=== PATIENT | female | born 1995 | race Two or more races ===

== ENCOUNTER 2024-02-04 08:52 | Emergency (ER) | payer SELFPAY ==
[2024-02-04 08:52] VITALS: BP 112/80; PULSE 80; RESP 14; TEMP 36.6; O2SAT 98; BMI 25.5
--- NOTE | 2024-02-04 09:11 | EDS_ITS ---
HPI History of Present Illness Chief Complaint: Back Detail of Chief Complaint: Back pain Informant: patient Narrative Narrative: Patient presents to the emergency department complaint of lower back pain that she has had for 3 days. Patient denies any injury. She is Togolese speaking and using iPad motor vehicle parts interpreter was able to obtain history. 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 She is cu rrently on her menstrual period. She does complain of some dysuria. She has been there for 3 days. She denies fevers. She denies pain radiating down her legs. She denies weakness in the extremities. She has no medical history otherwise. Patient has no primary care physician. She has had no fever or vomiting. She denies abdominal pain. PFSH PFSH Medical History no medical history Home Medications ?Medication ?Instructions ?Recorded ?Last Taken ?Type cyclobenzaprine 10 mg tablet 10 mg PO TID PRN Muscle Spasm #20 02/04/24 Unknown Rx TABLETS naproxen 500 mg tablet 500 mg PO BID #20 tabs 02/04/24 Unknown Rx Allergy/AdvReac Type Severity Reaction Status Date / Time No Known Allergies Allergy Verified 02/04/24 09:07 Surgical History no surgical history Social History Smoking Status: Never smoker ROS ROS ED Review of Systems ROS Unobtainable: other Constitutional Constitutional ED: Reports lethargy; Denies chills, fever(s), sweats or weight loss Eyes Eyes: Denies blurry vision, change in vision or diplopia ENT ENT ED: Denies rhinorrhea or sore throat Cardiovascular Cardiovascular: Denies chest pain, orthopnea or racing heartbeat Respiratory/Chest Respiratory/Chest: Denies cough, dyspnea, dyspnea on exertion, orthopnea or sputum Gastrointestinal Gastrointestinal: Denies abdominal pain, diarrhea, nausea or vomiting Genitourinary Genitourinary ED: Reports dysuria; Denies hematuria or urinary frequency Musculoskeletal Musculoskeletal: Reports back pain; Denies arthralgias, myalgias or neck pain Integumentary Denies abscess, Abrasions or rash Neurologic Neurologic: Denies headache(s) or weakness Psychiatric Psychiatric: Denies anxiety, depression or suicidal thoughts Endocrine Endocrinology: Denies polydipsia, polyphagia or polyuria Hematologic/Lymphatic Hematologic/Lymphatic: Denies easy bleeding, easy bruising or lymphadenopathy Allergic/Immunologic Allergic/Immunologic ED: Denies mouth swelling, tongue swelling or urticaria EXAM Physical Exam Const Vital Signs: 02/04/24 08:52 Temperature 97.9 F Temperature Source Temporal Pulse Rate 80 Respiratory Rate 14 Blood Pressure 112/80 Blood Pressure Mean 90 Pulse Ox 98 Oxygen Delivery Method Room Air Positive well nourished and well developed General Appearance ED: well developed and NAD HEENT Reports TM's clear and moist mucous membranes normocephalic and atraumatic; Negative for trauma or tenderness Tympanic Membrane ED: Yes TM's clear Eyes PERRL and EOMs intact bilaterally General Eye ED: Negative for pale conjunctiva or scleral icterus Neck no lymphadenopathy, supple and no JVD General: Negative for tenderness Chest Wall inspection of chest normal and palpation of chest normal Chest: Negative for tenderness Resp normal respiratory effort and clear to auscultation bilaterally Effort and Inspection: Negative for respiratory distress or pain with movement Auscultation: Negative for rhonchi, wheezes or diminished lung sounds Cardio regular rate, regular rhythm, S1 normal heart sound, S2 normal heart sound and no murmurs Peripheral Pulses: pulses 2+ throughout GI normal to inspection, nondistended, normoactive bowel sounds, soft to palpation, non-tender, non-distended and no masses Back/Spine no CVA tenderness and no thoracic nor lumbar tenderness Back/Spine Narrative: Mild diffuse tenderness palpation over the paraspinal musculature bilaterally in the lumbar region. No bony tenderness on exam. She has negative straight leg raises. Deep tendon reflexes are plus 2 out of 4 bilaterally at the patella and Achilles. She has normal 5 extension. Extremity normal to inspection General Extremety ED: Negative for edema General Extremity: Negative for edema Neuro oriented x3, CN's II-XII intact bilaterally, no sensory deficits noted and gait normal Sensorium / Orientation: awake, alert, oriented to person, oriented to place and oriented to time Motor Exam: strength 5/5 throughout and strength abnormal Psych mental status grossly normal Skin no rashes or lesions noted and no wounds MDM MDM MDM Narrative Medical decision making narrative: Patient with atraumatic back pain. She is currently on her menstrual period. She has had some dysuria. Urinalysis obtained was positive for blood in the urine without signs of infection. hCG was negative. I feel that hematuria is related to patient being on her menstrual period. I do not feel any type of imaging is indicated. Will give work restrictions and will start on Naprosyn and Flexeril. Advised to follow-up with primary care physician on-call for no doc within next 3 to 5 days. No radiculopathic signs or symptoms. No evidence for cauda equina Lab Data Attestation: I reviewed the patient's lab results. Labs: Laboratory Results - last 24 hr 02/04/24 09:20 Urine Color Yellow Urine Clarity Clear Urine pH 6.0 Ur Specific [place] 1.015 Urine Protein 15 H Urine Glucose (UA) Normal Urine Ketones Negative Urine Occult Blood 250 H Urine Nitrite Negative Urine Bilirubin Negative Urine Urobilinogen Normal Ur Leukocyte Esterase Negative Urine RBC 50-100 SEEN Urine WBC 0 SEEN Ur Squamous Epith Cells 0 SEEN Urine Bacteria 0 SEEN Urine Mucus 0 SEEN Urine Test Negative Discharge Plan Triage Chief Complaint: Back ED Provider: Maile Kohli Dx/Rx/DC Orders Clinical Impression: Back pain Instructions: ED Back Pain (Acute or Chronic) Prescriptions: New cyclobenzaprine 10 mg tablet 10 mg PO TID PRN (Reason: Muscle Spasm) Qty: 20 0RF naproxen 500 mg tablet 500 mg PO BID Qty: 20 0RF Referrals: Sergei Villalba MD [Med Staff - Associate Product Manager] - 3-5 Days Print Language: Setswana Disposition Disposition: Home, Self Care
[2024-02-04 09:27] LABS: Bacteria 0 SEEN /hpf (None Seen); Mucous, Urine 0 SEEN /hpf (<or=2+); Squamous Epithelial Cells - UA 0 SEEN /hpf (5-10); White Blood Cells 0 SEEN /hpf (0-5)
[2024-02-04 09:35] LABS: Color, Urine Yellow (Yellow); Glucose, Dipstick Normal (Normal); Ketone-Dipstick Negative (Negative); Leukocyte Esterase-Dipstick Negative /ul (Negative); Nitrite-Dipstick Negative (Negative); Occult Blood-Urine 250 /ul (Negative); Protein-Dipstick 15 mg/dl (Negative); Specific Gravity, Urine 1.015 (1.002-1.030); Urine Bilirubin Dipstick Negative (Negative); Urine Clarity Clear (Clear); Urine Urobilinogen Normal (Normal)
[2024-02-04 09:42] LABS: Internal QC Validated? YES +Cl - CLEAR BKGD; Pregnancy, Urine Negative Negative; Red Blood Cells-Urine 50-100 SEEN /hpf (0-5)
[2024-02-04 11:12] VITALS: BP 110/78; PULSE 74; RESP 16; TEMP 36.7; O2SAT 99
== END 2024-02-04 12:23 | disposition home or self-care (01) ==
PROVIDERS: Emergency Provider Emergency Medicine; Visit Provider Emergency Medicine
DX: M54.9 Dorsalgia, unspecified (principal); R30.0 Dysuria; R31.9 Hematuria, unspecified
CPT/HCPCS: 81001; 81025; 99283

== ENCOUNTER 2024-07-07 13:52 | Emergency (ER) | payer SELFPAY ==
[2024-07-07 13:54] VITALS: BP 114/96; PULSE 86; RESP 14; TEMP 36.2; O2SAT 100; BMI 28.3
--- NOTE | 2024-07-07 14:16 | EDS_ITS ---
HPI <STEFF Leal - Last Filed: 07/07/24 15:28> History of Present Illness Chief Complaint: Back Narrative Narrative: 29-year-old female with no past medical history reports bilateral low back pain over the last 3 weeks that is worse with movement. She had no injury. Patient states her LMP was 05/17/2024 and she had a positive home test. She has no abdominal pain, or vaginal bleeding or discharge. No fever or chills or nausea or vomiting. She also developed a headache this morning and decided to seek evaluation because she does not have a doctor. She is not on any medications. [facility] <STEFF Leal - Last Filed: 07/07/24 15:28> [facility] Medical History (Updated 07/07/24 @ 14:50 by STEFF Leal) Lumbar strain Home Medications ?Medication ?Instructions ?Recorded ?Last Taken ?Type cyclobenzaprine 10 mg tablet 10 mg PO TID PRN Muscle S pasm #20 02/04/24 Unknown Rx TABLETS naproxen 500 mg tablet 500 mg PO BID #20 tabs 02/03 Unknown Rx Allergy/AdvReac Type Severity Reaction Status Date / Time No Known Allergies Allergy Verified 07/07/24 13:57 Social History Smoking Status: Never smoker ROS <STEFF Leal - Last Filed: 07/07/24 15:28> ROS ED ROS Narrative Constitutional: Negative for fever, chills, malaise. CVS: Negative for chest pain, syncope. Respiratory: Negative for shortness of breath. GI: Negative for abdominal pain, nausea, vomiting. : Negative for dysuria, hematuria or frequency. EXAM <STEFF Leal - Last Filed: 07/07/24 15:28> Physical Exam Narrative Exam Narrative: CONST: Patient sitting in no acute distress. EYES: Normal inspection. PERRL, EOMI. ENT: Normal inspection, moist mucous membranes. NECK: Normal inspection. RESP: No respiratory distress, CTAB. CVS: Regular rate and rhythm, no murmur, no gallop. ABD: Soft and nontender, no guarding or rebound, nondistended. Back: Normal inspection, no midline tenderness. Bilateral lumbar pain with movement. 5/5 strength in bilateral hip flexion, knee flexion/extension, and DF/PF. Normal sensation, 2+ DP pulses. Normal gait. SKIN: Color normal, no rash, warm, dry, intact. EXTREMITIES: Normal appearance, no pedal edema. NEURO: Alert and answering questions appropriately. PSYCH: Normal affect. Const Vital Signs: 07/07/24 13:54 Temperature 97.2 F L Temperature Source Temporal Pulse Rate 86 Respiratory Rate 14 Blood Pressure 114/96 H Blood Pressure Mean 102 Pulse Ox 100 Oxygen Delivery Method Room Air <Yfn Robledo MD - Last Filed: 07/07/24 15:55> Physical Exam Const Vital Signs: 07/07/24 13:54 Temperature 97.2 F L Temperature Source Temporal Pulse Rate 86 Respiratory Rate 14 Blood Pressure 114/96 H Blood Pressure Mean 102 Pulse Ox 100 Oxygen Delivery Method Room Air MDM <STEFF Leal - Last Filed: 07/07/24 15:28> MDM MDM Narrative Medical decision making narrative: History gathered from: Patient, significant other Differential includes but not limited to musculoskeletal back pain, UTI 29-year-old female had a recent positive home test. She presents with several weeks of lumbar pain with movement and an acute generalized headache this morning. She appears well and nontoxic. Vital signs are stable. Her exam is overall benign and she has no focal neurological deficits. She has no infectious signs or symptoms and no neck pain or meningismus so I do not suspect meningitis. Her bilateral lumbar pain is reproducible with movements so I think it is musculoskeletal. Lower extremity MSPs are intact. Urinalysis is negative for infection and test is positive. She has no red flag symptoms concerning for cauda equina syndrome. She was treated with Tylenol with improvement in pain. I provided the contact information for the [facility] center and recommended she take Tylenol as needed. She has no abdominal pain or bleeding send no emergent ultrasound is indicated. Return precautions were discussed and she was discharged in stable condition peer Lab Data Labs: Laboratory Results - last 24 hr 07/07/24 14:19 Urine Color Yellow Urine Clarity Cloudy Urine pH 7.0 Ur Specific [place] 1.015 Urine Protein Negative Urine Glucose (UA) Normal Urine Ketones Negative Urine Occult Blood Negative Urine Nitrite Negative Urine Bilirubin Negative Urine Urobilinogen 4 H Ur Leukocyte Esterase 25 H Urine RBC 0 SEEN Urine WBC 0-5 SEEN Ur Squamous Epith Cells 0-5 SEEN Amorphous Sediment 3+ PHOS Urine Bacteria 0 SEEN Urine Mucus 0 SEEN Urine Test Positive H <Yfn Robledo MD - Last Filed: 07/07/24 15:55> [facility] Lab Data Labs: Laboratory Results - last 24 hr 07/07/24 14:19 Urine Color Yellow Urine Clarity Cloudy Urine pH 7.0 Ur Specific [place] 1.015 Urine Protein Negative Urine Glucose (UA) Normal Urine Ketones Negative Urine Occult Blood Negative Urine Nitrite Negative Urine Bilirubin Negative Urine Urobilinogen 4 H Ur Leukocyte Esterase 25 H Urine RBC 0 SEEN Urine WBC 0-5 SEEN Ur Squamous Epith Cells 0-5 SEEN Amorphous Sediment 3+ PHOS Urine Bacteria 0 SEEN Urine Mucus 0 SEEN Urine Test Positive H Treatment and Re-Evaluation :: Dr. Robledo: I have personally performed a face to face assessment of the patient and have reviewed the JEFFERSON Note. I performed a substantive portion of the visit including all aspects of the following. My campos findings include: History is mildly limited secondary to language barrier. 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 Patient with positive home test. Had a headache today as well as bilateral low back pain worse with movement. Exam is afebrile. Vital signs noted. No vertebral point tenderness or bony step-off. Neurovascular intact bilateral lower extremities. No crepitance of skin. Medical Decision Making: I think that the patient probably has more musculo skeletal back pain. Given her home test being positive, she was administered Tylenol orally here. Urine test is positive here. Urinalysis is negative for infection and I do not feel antibiotics are indicated. At this point in time, she was given referral to the care center for further care of her . She denies any vaginal bleeding or discharge or any pelvic pain. I feel she can be discharged to follow-up with ASSISTANT DIRECTOR OF SECURITY and continue [id number] Tylenol. She was told not to take Motrin or any NSAIDs. Return instructions reviewed. Disposition is discharged home in stable condition. Other additions or changes: [None] Discharge Plan Triage Chief Complaint: Back ED Midlevel Provider: Cassie Pearson ED Provider: Yfn Robledo Dx/Rx/DC Orders Clinical Impression: First trimester , Acute lumbar myofascial strain Instructions: 1st Trimester, ED Back Sprain/Strain Prescriptions: No Action cyclobenzaprine 10 mg tablet 10 mg PO TID PRN (Reason: Muscle Spasm) Qty: 20 0RF naproxen 500 mg tablet 500 mg PO BID Qty: 20 0RF Primary Care Provider: Care Physician,No Primary Referrals: Care Physician,No Primary [Primary Care Provider] - Activity Restrictions/Additional Instructions: Follow up with the care center. Call them for an appointment. You can take Tylenol as needed for pain. Print Language: Yanick Kimble Disposition Disposition: Home, Self Care Discharge Date/Time: 07/07/24 15:05
[2024-07-07 14:25] LABS: Bacteria 0 SEEN /hpf (None Seen); Mucous, Urine 0 SEEN /hpf (<or=2+)
[2024-07-07] MEDS: Acetaminophen 500 MG Tablet 1000 MG PO (14:26)
[2024-07-07 14:27] LABS: Color, Urine Yellow (Yellow); Glucose, Dipstick Normal (Normal); Ketone-Dipstick Negative (Negative); Leukocyte Esterase-Dipstick 25 /ul (Negative); Nitrite-Dipstick Negative (Negative); Occult Blood-Urine Negative /ul (Negative); Protein-Dipstick Negative (Negative); Specific Gravity, Urine 1.015 (1.002-1.030); Urine Bilirubin Dipstick Negative (Negative); Urine Clarity Cloudy (Clear); Urine Urobilinogen 4 mg/dl (Normal)
[2024-07-07 14:35] LABS: Amorphous Sediment 3+ PHOS
[2024-07-07 14:36] LABS: Red Blood Cells-Urine 0 SEEN /hpf (0-5); Squamous Epithelial Cells - UA 0-5 SEEN /hpf (5-10); White Blood Cells 0-5 SEEN /hpf (0-5)
[2024-07-07 14:37] LABS: Internal QC Validated? YES +Cl - CLEAR BKGD; Pregnancy, Urine Positive Negative
== END 2024-07-07 15:05 | disposition home or self-care (01) ==
PROVIDERS: Physician Assistant; Emergency Provider Emergency Medicine; Visit Provider Emergency Medicine
DX: O9A.211 Injury, poisoning and certain other consequences of external causes complicating pregnancy, first trimester (principal); S39.012A Strain of muscle, fascia and tendon of lower back, initial encounter; Z3A.00 Weeks of gestation of pregnancy not specified; X58.XXXA Exposure to other specified factors, initial encounter
CPT/HCPCS: 81001; 81025; 99282

== ENCOUNTER 2024-10-19 15:19 | Outpatient (CLI) | payer SELFPAY ==
[2024-10-19 15:47] VITALS: BP 101/55; PULSE 75; RESP 16; TEMP 36.6
[2024-10-19] MEDS: Lactated Ringers 1,000 ML 999 ML IV (16:25)
[2024-10-19 16:47] LABS: Color, Urine Yellow (Yellow); Glucose, Dipstick Normal (Normal); Ketone-Dipstick Negative (Negative); Leukocyte Esterase-Dipstick 500 /ul (Negative); Nitrite-Dipstick Negative (Negative); Occult Blood-Urine Negative /ul (Negative); Protein-Dipstick 30 mg/dl (Negative); Specific Gravity, Urine 1.015 (1.002-1.030); Urine Bilirubin Dipstick Negative (Negative); Urine Clarity Cloudy (Clear); Urine Urobilinogen 1 mg/dl (Normal); Urine pH 6.5 (5.0 - 8.0)
[2024-10-19 17:10] LABS: Absolute Lymphocyte Count 0.95 X10^3/uL (0.83-4.51); Absolute Neutrophil Count 3.6 X10^3/uL (2.0-7.7); Basophil# 0.02 X10^3/uL; Basophil% 0.4 % (0-1); Eosinophil# 0.02 X10^3/uL; Eosinophils% 0.4 % (0-5); Hematocrit 29.4 % (37-47); Hemoglobin 9.3 g/dL (12.0-15.0); Lymphocyte # 0.95 X10^3/ul (0.83-4.51); Mean Corp Hgb Conc 31.6 g/dL (32-36); Mean Corpuscular Hgb 23.8 pg (27.0-32.0); Mean Corpuscular Volume 75.4 fL (81-99); Mean Platelet Vol. 12.8 fl (6.2-12.0); NRBC Flagged by Analyzer 0 % (0-5); Neutrophil % 71.8 % (47-70); Platelet Count 167 K/mm3 (150-450); RBC Distribution Width CV 14.4 % (11.6-14.6); RBC Distribution Width SD 38.1 fl (35.1-43.9)
--- NOTE | 2024-10-19 17:42 | OB.TRI.HP_ITS ---
HPI - General General Date of Admission: 10/19/24 Date of Service: 10/19/24 HPI Narrative APARNA MOCK, is a 29 F G2, P1 who presents at 21 weeks gestation with lower abdominal crampiness and dizziness. She reports that the dizziness occurs primarily when the pain in her right knee flares. She reports that she has had this pain for the last 5 months since she became . She denies any bleeding and reports good movement. 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 Patient speaks very little Palestinian but rather Wolof as she is from [facility]. She follows with a doctor in [place] for her obstetrical care. Maternal Data Information Gestational age: 21+ weeks [facility] Medical History (Updated 10/19/24 @ 17:[address] Estiven Vee MD) Lumbar strain Home Medications ?Medication ?Instructions ?Recorded ?Last Taken ?Type cyclobenzaprine 10 mg tablet 10 mg PO TID PRN Muscle S pasm #20 02/04/24 Unknown Rx TABLETS naproxen 500 mg tablet 500 mg PO BID #20 tabs 02/03 Unknown Rx Allergy/AdvReac Type Severity Reaction Status Date / Time No Known Allergies Allergy Verified 10/19/24 16:53 Social History Smoking Status: Never smoker Physical Exam Const alert, oriented x3 and no apparent distress General Appearance: cooperative, comfortable and well kempt Orientation / Consciousness: awake, oriented to person and oriented to place Exam Limitations: no limitations HEENT normocephalic Resp normal respiratory effort and normal air movement Cardio regular rate GI GI Narrative: Abdominal size consistent with gestational age. Positive heart tones noted. Extremity full ROM Extremity Narrative: Normal left leg. Right leg with pain behind right knee. Patient indicates this been present for 5 months and started with . No edema noted in right leg and negative Homans' sign. However, palpation behind and just below the right knee shows moderate pain. General Extremity: normal exam except as noted Neuro oriented x3 and moves all extremities Psych mental status grossly normal Appearance: grossly normal and appropriate NST FHR Rate Baby A NST Reactive:: Appropriate for gestational age Assessment & Plan (1) Posterior right knee pain: (2) Dizziness, nonspecific: (3) : PLAN: Plan Urine analysis and CBC unremarkable. Positive FHTs present and no contractions noted. Confirmed patient is no longer using naproxen. Patient indicates that her dizziness occurs primarily whenever her right knee pain flares. We discussed that with the warm weather drinking more water may help to alleviate some of the dizziness issues. She indicates that she has not had a doppler to rule out DVT so we we will return the patient to the emergency room to have this evaluated. Will give 1 week off work as work seems to aggravate the knee pain and dizziness; she can then discuss further with her OB in [place] whether or not she needs to be off work additional time.
--- OUTSIDE RECORDS SUMMARY | 2024-10-19 19:14 | XMS RPT_ITS | CCD ---
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 Role Phone Unavailable Primary Care Provider Unavailabl e Care Physician, No Primary Primary Care Unava ilable Yfn Robledo Attending Unavailable Maile Kohli Attending Unavailable Care Physician, No Primary Primary Care Unava ilable Care Physician, No Primary Primary Care Unava ilable Peter Rick Attending Unavailable Care Physician, No Primary Referring Unava ilable TOSHA NORRIS MD Consulting Unavailable PHYSICIAN, NONE Primary Care Unavailable TOSHA NORRIS MD Attending Unavailable PHYSICIAN, NONE Primary Care Unavailable TOSHA NORRIS MD Attending Unavailable WESTON ELIZALDE MD Attending Unavailable PHYSICIAN, NONE Primary Care Unavailable Problems Active Problems Problem Classification Problem Date Documented Da te Episodic/Chronic Abdominal pain (1 source) Right lower quadrant pain; Translations: [Right lower quadrant pain] 06-23-2024 Episodic Other and delivery including normal (3 sources) Encounter for supervision of other normal , first trimester; Translations: [Encounter for supervision of other normal , first trimester] Onset: 08-02-2024 Episodic Unclassified (1 source) Low back pain, unspecified; Translations: [Low back pain, unspecified] Onset: 07-18-2024 Past or Other Problems Problem Classification Problem Date Documented Da te Episodic/Chronic Spondylosis; intervertebral disc disorders; other back problems (1 source) Dorsalgia, unspecified; Translations: [Dorsalgia, unspecified] Onset: 02-27-2024 Episodic Sprains and strains (1 source) Strain of muscle, fascia and tendon of lower back, initial encounter; Translations: [Strain of muscle, fascia and tendon of lower back, initial encounter] Onset: 02-16-2024 Episodic Results Test Name Value Interpretation Reference Range 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 Trainer Maintenance Worker Cytology Report SPECIMEN: Specimen Description: Liquid Prep w/ HPV Specimen: Cervical/Endocervica l Screening or Diagnostic: Screening RELEVANT HISTORY: LMP: 06/09 : Yes SPECIMEN ADEQUACY: SATISFACTORY FOR EVALUATION Endocervical/Transfo rmational zone component present INTERPRETATION/RESUL TS: NEGATIVE FOR INTRAEPITHELIAL LESION OR MALIGNANCY ORGANISMS: Fungal organisms morphologically consistent with sean species HIGH RISK HPV TESTING: Event Code Result HPV Interp See Interp HPVO * HPV Interp Text: High Risk HPV Typing is Positive: High Risk HPV Types detected, other than HPV 16 or HPV 18. Specimen is positive for the DNA of any one of, or combination of, the following high risk HPV types: 31, 33, 35, 39, 45, 51, 52, 56, 58, 59, 66, 68. HPV types 16 and 18 DNA were undetectable or below the pre-set threshold. The nikolay High-Risk HPV DNA Test is not intended for use as a screening device for Pap normal women under age 30 and is not intended to substitute for regular Pap screening. The nikolay High-Risk HPV DNA Test is designed to augment existing methods for the detection of cervical disease and should be used in conjunction with clinical information derived from other diagnostic and screening tests, physical examinations and full medical history in accordance with appropriate patient management procedures. NOTE: A negative result does not preclude the presence of HPV infection because results depend on adequate specimen collection, absence of inhibitors and sufficient DNA to be detected. As of: 08/07/24 14:49 EDT Pathology Reports Accession: Collected Date/Time: Received Date/Time: Pathologist: [id number] 08/02/2024 09:29 EDT 08/02/2024 18:00 EDT COMMENT: This Pap Test was successfully processed and evaluated with the assistance of the Advanced Mem-TechPrep Test Imaging System. Verified by Pathology report verified by [facility] Screened by: AIDA Electronically signed by Keisha DIAMOND (ASCP) Sign-Out Date: 08/07/2024 14:50 Performing Lab: [facility], [address] [place] [address] Pathology Dept Disclaimer The Pap test is a screening test for cervical cancer. As evidenced by published data, it is subject to both inherent false negative and false positive results. Your patient's results should be interpreted in context with pertinent clinical history including gynecological examination. Normal [facility] HPVon 08-07-2024 HPV Interp Abnormal See Interp HPVN [facility] Comment on above: Order Comment: Order placed by AP_HPV_ORDER rule from [id number] Result Comment: High Risk HPV Typing is Positive: High Risk HPV Types detected, other than HPV 16 or HPV 18. Specimen is positive for the DNA of any one of, or combination of, the following high risk HPV types: 31, 33, 35, 39, 45, 51, 52, 56, 58, 59, 66, 68. HPV types 16 and 18 DNA were undetectable or below the pre-set threshold. The nikolay High-Risk HPV DNA Test is not intended for use as a screening device for Pap normal women under age 30 and is not intended to substitute for regular Pap screening. The nikolay High-Risk HPV DNA Test is designed to augment existing methods for the detection of cervical disease and should be used in conjunction with clinical information derived from other diagnostic and screening tests, physical examinations and full medical history in accordance with appropriate patient management procedures. NOTE: A negative result does not preclude the presence of HPV infection because results depend on adequate specimen collection, absence of inhibitors and sufficient DNA to be detected. See [facility] HPVO Performed By: #### H PV #### [place] [address] HPV Source Cervix Normal [facility] Comment on above: Order Comment: Order placed by AP_HPV_ORDER rule from [id number] Performed By: #### H PV #### [place] [id number] VARISon 08-07-[address] equiv Normal [facility] Comment on above: Result Comment: INTE RPRETATION OF VARICELLA IMMUNE STATUS IgG BY EIA: Negative: No detectable VZV IgG antibody. Positive: VZV IgG antibody Detected. If clinically indicated, order Varicella IgM to rule out recent infection. Equivocal: Equivocal for antibodies to VZV. Suggest repeat testing in 10-14 days. Performed By: #### A BOGEL ABSGEL, CBC, TSH, ADIFF, HIVRP, ANEU ####[place] [address] [place], [place] [address]#### RPR, HBSAG, VARIS, RUBIS ####[place] [id number] [place] [address] CTPCRon 08-03-2024 C. trachomatis Interp Normal See CT Interp N [facility] Comment on above: Result Comment: C. t rachomatis DNA not detected. Specimen is presumptive negative for C. trachomatis. A negative result does not preclude C. trachomatis infection because results depend on adequate specimen collection, absence of inhibitors, and sufficient DNA to be detected. See CT Interp N Performed By: #### C TPCR, NGPCR1 #### [place] [address] C.trachomatis PCR Negative Normal Negative [facility] Comment on above: Result Comment: Mole cular (PCR) assay performed on the Krzysztof Nikolay 4800 system. Performed By: #### C TPCR, NGPCR1 #### [address] [address] Chlam Source Cervix Normal [facility] Comment on above: Performed By: #### C TPCR, NGPCR1 #### [address] [address] [id number] 08-03-2024 GC PCR Source Cervix Normal [facility] Comment on above: Performed By: #### C TPCR, NGPCR1 #### [place] [address] N. gonorrhoeae (PCR) Negative Normal Negative [facility] Comment on above: Result Comment: Mole cular (PCR) assay performed on the Krzysztof Nikolay 4800 System. Performed By: #### C TPCR, NGPCR1 #### [place] [id number] N. gonorrhoeae Interp Normal See NG Interp N [facility] Comment on above: Result Comment: N. g onorrhoeae DNA not detected. Specimen is presumptive negative for N. gonorrhoeae. A negative result does not preclude Neisseria gonorrhoeae infection because results depend on adequate specimen collection, absence of inhibitors, and sufficient DNA to be detected. See NG Interp N Performed By: #### C TPCR, NGPCR1 #### [facility] [address] [place], [place] [id number] RPRon 08-03-2024 Reagin Ab RPR Ql (S) Non-Reactive Normal Non-Reactive [facility] Comment on above: Result Comment: The RPR test is a non-treponemal assay useful as an aid in the diagnosis of primary and secondary syphilis. It converts to positive generally within 2 weeks after the appearance of a lesion. This test is also useful for monitoring response to antibiotic therapy. A positive RPR screening test will be followed by the FTA ABS test. False positive RPR tests may occur in 1) patients with underlying autoimmune disorders, 2) elderly patients, 3) , and 4) other conditions with abnormal serum globulins. Performed By: #### A BOGEL, ABSGEL, CBC, TSH, ADIFF, HIVRP, ANEU ####[place] [address]#### RPR, HBSAG, VARIS, RUBIS ####[place] [address] RUBISon 08-03-[address] Positive Normal Positive [facility] Comment on above: Result Comment: This immune status assay detects IgM and/or IgG antibody to Rubella. Interpret results in conjunction with clinical history. POS: Antibody detected; exposure at undetermined recent or distant time. If clinically indicated, order Rubella IGM to rule out recent infection. NEG: No antibody detected. Performed By: #### A BOGEL, ABSGEL, CBC, TSH, ADIFF, HIVRP, ANEU ####[place] [address]#### RPR, HBSAG, VARIS, RUBIS ####[place] [address] .Auto Diffon 08-02-2024 Basophil, Absolute 0.0 10 3/mcL Normal 0.0-0.2 [place] Comment on above: Performed By: #### A BOGEL, ABSGEL, CBC, TSH, ADIFF, HIVRP, ANEU #### [place] [address] #### RPR, HBSAG, VARIS, RUBIS #### [address] [address] Basophils/100 WBC (Bld) 0.6 % Normal 0.0-2.5 [facility] Comment on above: Performed By: #### A BOGEL, ABSGEL, CBC, TSH, ADIFF, HIVRP, ANEU #### [place] [address] #### RPR, HBSAG, VARIS, RUBIS #### [address] [address] Eosinophil, Absolute 0.0 10 3/mcL Normal 0.0-0.7 [facility] Comment on above: Performed By: #### A BOGEL, ABSGEL, CBC, TSH, ADIFF, HIVRP, ANEU #### [place] [address] #### RPR, HBSAG, VARIS, RUBIS #### [address] [address] Eosinophils/100 WBC (Bld) 1.0 % Normal 0.0-7.0 [facility] Comment on above: Performed By: #### A BOGEL, ABSGEL, CBC, TSH, ADIFF, HIVRP, ANEU #### [place] [address] #### RPR, HBSAG, VARIS, RUBIS #### [address] [address] Lymphocyte, Absolute 1.0 10 3/mcL Normal 0.9-4.3 [facility] Comment on above: Performed By: #### A BOGEL, ABSGEL, CBC, TSH, ADIFF, HIVRP, ANEU #### [place] [address] #### RPR, HBSAG, VARIS, RUBIS #### [address] [address] Lymphocytes/100 WBC (Bld) 32.7 % Normal 20.0-40.0 [facility] Comment on above: Performed By: #### A BOGEL, ABSGEL, CBC, TSH, ADIFF, HIVRP, ANEU #### [place] [address] #### RPR, HBSAG, VARIS, RUBIS #### [address] [address] Monocyte, Absolute 0.3 10 3/mcL Normal 0.1-1.4 [place] Comment on above: Performed By: #### A BOGEL, ABSGEL, CBC, TSH, ADIFF, HIVRP, ANEU #### [place] [address] #### RPR, HBSAG, VARIS, RUBIS #### [address] [address] Monocytes/100 WBC (Bld) 9.1 % Normal 2.0-13.0 [facility] Comment on above: Performed By: #### A BOGEL, ABSGEL, CBC, TSH, ADIFF, HIVRP, ANEU #### [place] [address] #### RPR, HBSAG, VARIS, RUBIS #### [address] [address] Neutrophils/100 WBC (Bld) 56.6 % Normal 50.0-75.0 [facility] Comment on above: Performed By: #### A BOGEL, ABSGEL, CBC, TSH, ADIFF, HIVRP, ANEU #### [place] [address] #### RPR, HBSAG, VARIS, RUBIS #### [address] [address] .NEUABSon 08-02-2024 Neutrophil, Absolute 1.8 10 3/mcL Low 2.3-8.1 [facility] Comment on above: Performed By: #### A BOGEL, ABSGEL, CBC, TSH, ADIFF, HIVRP, ANEU #### [place] [address] #### RPR, HBSAG, VARIS, RUBIS #### [address] [address] ABO/Rh (Gel)on 08-02-2024 ABO/Rh Interp Positive Invalid Interpretation Code [facility] Comment on above: Performed By: #### A BOGEL, ABSGEL, CBC, TSH, ADIFF, HIVRP, ANEU #### [address] [address] #### RPR, HBSAG, VARIS, RUBIS #### [address] [address] ABS (Gel)on 08-02-2024 ABSC Interp (Gel) Negative Normal [facility] Comment on above: Performed By: #### A BOGEL, ABSGEL, CBC, TSH, ADIFF, HIVRP, ANEU #### [place] [address] #### RPR, HBSAG, VARIS, RUBIS #### [place] [address] CBCon 08-02-2024 Erythrocyte distribution width (RBC) [Ratio] 15.4 % Normal 11.5-15.5 [facility] Comment on above: Performed By: #### A BOGEL, ABSGEL, CBC, TSH, ADIFF, HIVRP, ANEU #### [address] [address] #### RPR, HBSAG, VARIS, RUBIS #### [place] [address] Hematocrit (Bld) [Volume fraction] 35.0 % Normal 34.0-46.0 [facility] Comment on above: Performed By: #### A BOGEL, ABSGEL, CBC, TSH, ADIFF, HIVRP, ANEU #### [address] [address] #### RPR, HBSAG, VARIS, RUBIS #### [place] [id number] Hgb 11.4 G/dL Low 12.0-16.0 [facility] Comment on above: Performed By: #### A BOGEL, ABSGEL, CBC, TSH, ADIFF, HIVRP, ANEU #### [place] [address] #### RPR, HBSAG, VARIS, RUBIS #### [address] [address] MCH (RBC) [Entitic mass] 23.3 pg Low 27.0-33.0 [facility] Comment on above: Performed By: #### A BOGEL, ABSGEL, CBC, TSH, ADIFF, HIVRP, ANEU #### [place] [address] #### RPR, HBSAG, VARIS, RUBIS #### [address] [address] MCHC 32.4 G/dL Normal 32.0-36.0 [facility] Comment on above: Performed By: #### A BOGEL, ABSGEL, CBC, TSH, ADIFF, HIVRP, ANEU #### [place] [address] #### RPR, HBSAG, VARIS, RUBIS #### [address] [address] MCV (RBC) [Entitic vol] 71.9 fL Low 80.0-99.0 [facility] Comment on above: Performed By: #### A BOGEL, ABSGEL, CBC, TSH, ADIFF, HIVRP, ANEU #### [place] [address] #### RPR, HBSAG, VARIS, RUBIS #### [place] [address] Platelet 216 10 3/mcL Normal 150-450 [facility] Comment on above: Performed By: #### A BOGEL, ABSGEL, CBC, TSH, ADIFF, HIVRP, ANEU #### [place] [address] #### RPR, HBSAG, VARIS, RUBIS #### [place] [address] Platelet mean volume (Bld) [Entitic vol] 9.3 fL Normal 6.6-10.5 [facility] Comment on above: Performed By: #### A BOGEL, ABSGEL, CBC, TSH, ADIFF, HIVRP, ANEU #### [place] [address] #### RPR, HBSAG, VARIS, RUBIS #### [place] [address] RBC 4.87 10 6/mcL Normal 4.10-5.30 [facility] Comment on above: Performed By: #### A BOGEL, ABSGEL, CBC, TSH, ADIFF, HIVRP, ANEU #### [place] [address] #### RPR, HBSAG, VARIS, RUBIS #### [place] [address] WBC 3.2 10 3/mcL Low 4.5-10.8 [facility] Comment on above: Performed By: #### A BOGEL, ABSGEL, CBC, TSH, ADIFF, HIVRP, ANEU #### [place] [address] #### RPR, HBSAG, VARIS, RUBIS #### [place] [address] HBSAGon 08-02-2024 Hep B Surf Ag Non-Reactive Normal Non-Reactive [facility] Comment on above: Performed By: #### A BOGEL, ABSGEL, CBC, TSH, ADIFF, HIVRP, ANEU ####[place] [address]#### RPR, HBSAG, VARIS, RUBIS ####[place] [address] HIVRPon 08-02-2024 HIV p24 Antigen Non-Reactive Normal Non-Reactive [facility] Comment on above: Result Comment: Dete ction of p24 may be inhibited by biotin in the sample, causing false negative results in acute infection. Therefore do not test samples from patients who are taking biotin. Performed By: #### A BOGEL, ABSGEL, CBC, TSH, ADIFF, HIVRP, ANEU ####[place] [address]#### RPR, HBSAG, VARIS, RUBIS ####[place] [address] HIV P24 Int Non-Reactive Invalid Interpretation Code [facility] Comment on above: Performed By: #### A BOGEL, ABSGEL, CBC, TSH, ADIFF, HIVRP, ANEU ####[place] [address]#### RPR, HBSAG, VARIS, RUBIS ####[place] [address] Rapid HIV 1/2 Antibody Non-Reactive Normal Non-Reactive [facility] Comment on above: Performed By: #### A BOGEL, ABSGEL, CBC, TSH, ADIFF, HIVRP, ANEU ####[place] [address]#### RPR, HBSAG, VARIS, RUBIS ####[place] [address] RHIV 1/2 Ab Int Non-Reactive Invalid Interpretation Code [facility] Comment on above: Performed By: #### A BOGEL, ABSGEL, CBC, TSH, ADIFF, HIVRP, ANEU ####[place] [address]#### RPR, HBSAG, VARIS, RUBIS ####[place] [address] TSHon 08-02-2024 TSH Qn 2.46 m[IU]/L Normal 0.36-3.74 [facility] Comment on above: Performed By: #### A BOGEL, ABSGEL, CBC, TSH, ADIFF, HIVRP, ANEU #### [place] [address] #### RPR, HBSAG, VARIS, RUBIS #### [address], [place] [address] Emergency Department Summary on 07-07-2024 Emergency Department Summary [facility] Medical Records Department [address] [place] [address] Emergency Department Summary 07/07/24 MR#: [id number] Acct: [id number] Name: APARNA MOCK Rep #: [id number] : 1995 29 From: Cassie ARTIS PCP: Care Physician,No Primary Status:DEP ER Location: ED HPI History of Present Illness Chief Complaint: Back Narrative Narrative: 29-year-old female with no past medical history reports bilateral low back pain over the last 3 weeks that is worse with movement. She had no injury. Patient states her LMP was 05/17/2024 and she had a positive home test. She has no abdominal pain, or vaginal bleeding or discharge. No fever or chills or nausea or vomiting. She also developed a headache this morning and decided to seek evaluation because she does not have a doctor. She is not on any medications. [facility] Medical History (Updated 07/07/24 @ 14:50 by STEFF Leal) Lumbar strain Home Medications ???Medication ???Instructions ???Recorded ???Last Taken ???Type cyclobenzaprine 10 mg tablet 10 mg PO TID PRN Muscle Spasm #20 02/04/24 Unknown Rx TABLETS naproxen 500 mg tablet 500 mg PO BID #20 tabs 02/04/24 Un known Rx Allergy/AdvReac Type Severity Reaction Status Date / Time No Known Allergies Allergy Verified 07/07/24 13:57 Social History Smoking Status: Never smoker ROS ROS ED ROS Narrative Constitutional: Negative for fever, chills, malaise. CVS: Negative for chest pain, syncope. Respiratory: Negative for shortness of breath. GI: Negative for abdominal pain, nausea, vomiting. : Negative for dysuria, hematuria or frequency. EXAM Physical Exam Narrative Exam Narrative: CONST: Patient sitting in no acute distress. EYES: Normal inspection. PERRL, EOMI. ENT: Normal inspection, moist mucous membranes. NECK: Normal inspection. RESP: No respiratory distress, CTAB. CVS: Regular rate and rhythm, no murmur, no gallop. ABD: Soft and nontender, no guarding or rebound, nondistended. Back: Normal inspection, no midline tenderness. Bilateral lumbar pain with movement. 5/5 strength in bilateral hip flexion, knee flexion/extension, and DF/PF. Normal sensation, 2+ DP pulses. Normal gait. SKIN: Color normal, no rash, warm, dry, intact. EXTREMITIES: Normal appearance, no pedal edema. NEURO: Alert and answering questions appropriately. PSYCH: Normal affect. Const Vital Signs: 07/07/24 13:54 Temperature 97.2 F L Temperature Source Temporal Pulse Rate 86 Respiratory Rate 14 Blood Pressure 114/96 H Blood Pressure Mean 102 Pulse Ox 100 Oxygen Delivery Method Room Air Physical Exam Const Vital Signs: 07/07/24 13:54 Temperature 97.2 F L Temperature Source Temporal Pulse Rate 86 Respiratory Rate 14 Blood Pressure 114/96 H Blood Pressure Mean 102 Pulse Ox 100 Oxygen Delivery Method Room Air MDM MDM MDM Narrative Medical decision making narrative: History gathered from: Patient, significant other Differential includes but not limited to musculoskeletal back pain, UTI 29-year-old female had a recent positive home test. She presents with several weeks of lumbar pain with movement and an acute generalized headache this morning. She appears well and nont oxic. Vital signs are stable. Her exam is overall benign and she has no focal neurological deficits. She has no infectious signs or symptoms and no neck pain or meningismus so I do not suspect meningitis. Her bilateral lumbar pain is reproducible with movements so I think it is musculoskeletal. Lower extremity MSPs are intact. Urinalysis is negative for infection and test is positive. She has no red flag symptoms concerning for cauda equina syndrome. She was treated with Tylenol with improvement in pain. I provided the contact information for the [facility] center and recommended she take Tylenol as needed. She has no abdominal pain or bleeding send no emergent ultrasound is indicated. Return precautions were discussed and she was discharged in stable condition peer Lab Data Labs: Laboratory Results - last 24 hr 07/07/24 14:19 Urine Color Yellow Urine Clarity Cloudy Urine pH 7.0 Ur Specific [place] 1.015 Urine Protein Negative Urine Glucose (UA) Normal Urine Ketones Negative Urine Occult Blood Negative Urine Nitrite Negative Urine Bilirubin Negative Urine Urobilinogen 4 H Ur Leukocyte Esterase 25 H Urine RBC 0 SEEN Urine WBC 0-5 SEEN Ur Squamous Epith Cells 0-5 SEEN Amorphous Sediment 3+ PHOS Urine Bacteria 0 SEEN Urine Mucus 0 SEEN Urine Test Positive H MDM Lab Data Labs: Labo (more content not included)... Normal [facility] ,Urineon 07-07-2024 Beta HCG ( test) Ql (U) Positive Abnormal [facility] Comment on above: Result Comment: PREG MARTIR TEST is *POSITIVE* Performed By: #### L 400.0001, L400.7600 #### [facility] [address] [place], [address] Urinalysis, Completeon 07-07 EPI,SQUAMOUS 0-5 SEEN Normal 5-10 [facility] Comment on above: Order Comment: DESTINEE CTOR TO SPECIFY Performed By: #### L 400.0001, L400.7600 #### [facility] [address] [place], [address] RBC 0 SEEN Normal 0-5 [facility] Comment on above: Order Comment: DESTINEE CTOR TO SPECIFY Performed By: #### L 400.0001, L400.7600 #### [facility] [address] [place], [address] WBC 0-5 SEEN Normal 0-5 [facility] Comment on above: Order Comment: DESTINEE CTOR TO SPECIFY Performed By: #### L 400.0001, L400.7600 #### [facility] [address] [place], [address] AMORPHOUS 3+ PHOS Normal [facility] Comment on above: Order Comment: DESTINEE CTOR TO SPECIFY Performed By: #### L 400.0001, L400.7600 #### [facility] [address] [place], [address] BACTERIA 0 SEEN Normal None Seen [facility] Comment on above: Order Comment: DESTINEE CTOR TO SPECIFY Performed By: #### L 400.0001, L400.7600 #### [facility] [address] [place], [address] Mucus Ql (Urine sed) 0 SEEN Normal [facility] Comment on above: Order Comment: COLLE CTOR TO SPECIFY Performed By: #### L 400.0001, L400.7600 #### [facility] [address] [place], [address] CNOVon 06-23-2024 CNOV Office Visit (UCWSTR) APARNA MOCK ([id number]) 1995 [facility] Date Time Provider Department 06/23/24 10:30 AM TRINA CHESTER [facility] During your visit today, we recorded the following information about you: Trina Chester APRN.[facility]AVEL REGISTERED NURSE NICU 06/23/2024 11:11 AM Signed Patient triaged at [facility]. Here today with worsening right lower quadrant pain over 1 week. Denies . Does not speak Peruvian, automotive parts interpreter with patient. Patient in no apparent distress at time of triage. I will refer to ER. Allergies As of Date: 06/23/2024 (Not on File) Date Reviewed: Never Reviewed Primary Visit Diagnosis:Right lower quadrant abdominal pain [R10.31] Problem List As Of Date: 06/23/2024 (None) Encounter Status:Closed by TRINA CHESTER on 06/23/24 Normal [facility] Visit Reporton 0 02-06-2024 Urgent Care Visit Report [facility] [address], [address] [place], [place] [address] OFFICE VISIT Date of Service: 02/06/24 MR#: [id number] Acct: [id number] Name: APARNA MOCK Rep #: [id number] : 1995 Provider: STEFF Anaya Age/Sex: 28/F Location: [facility] Status: Signed Intake Vital Signs 02/04/24 08:52 02/06/24 10:25 Height 5 ft 6 in 5 ft 4 in Weight: 163 lb 4 oz BMI 28.0 BP 128/86 H Blood Pressure Location Lt brachial Position Sitting Respiration 16 Pulse 64 Pulse Source Monitor Temp 98.6 F Temp Source Temporal Pulse Oximetry (%) 100 Oxygen Delivery Method room air Intake Visit Reasons: ED FU/BACK INJURY/GOJO Chief Complaint: ED FU BACK INJURY/ GOJO [employer] Worker Required: No Accompanied by: Friend Is patient in pain?: No Allergies No Known Allergies Allergy (Verified 02/06/24 10:26) Medications ???Medication ???Instructions ???Recorded ???Confirmed ???Type cyclobenzaprine 10 mg tablet 10 mg PO TID PRN Muscle Spasm #20 02/04/24 02/06/24 Rx TABLETS naproxen 500 mg tablet 500 mg PO BID #20 tabs 02/04/24 02/06/24 Rx PFSH Medical History (Updated 02/06/24 @ 12:42 by Peter ARTIS, STEFF) Lumbar strain Social History Smoking Status: Never smoker HPI HPI Chief Complaint: ED FU BACK INJURY/ GOJO Details: APARNA MOCK, is a 28 F who presents to the office today for follow-up status post ED evaluation for low back pain/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 No chest pain, shortness of breath, and dyspnea on exertion, or caudal/ radicular complaints upon questioning. Pain is aggravated to touch and with flexion/extension at the waist. No byfx-bnw-[id number] products taken to assist. No other associated symptoms and no other alleviating/aggravat ing factors. ROS Const Constitutional: No other (As above) Exam Const General: cooperative, healthy appearing and no acute distress Orientation: alert and awake Resp Effort Inspection: normal respiratory effort and able to speak in complete sentences Cardio Rate: regular rate Pulses: radial pulses present GI Inspection: normal to inspection Musc Thoracic/Lumbar Spine: thoracic and lumbar spine normal to inspection, straight leg raise negative bilaterally, pain with thoraco-lumbar ROM with forward flexion, paraspinal tenderness bilaterally in the mid lumbar, no thoracic spinal tenderness and no lumbar spinal tenderness Skin General: no rashes or lesions noted Neuro General: patient alert, patient awake and patient oriented x3 Cognition: normal cognition Speech: speech normal Psych Appearance: grossly normal Mental Status: mental status grossly normal Mood: congruent mood Affect: normal affect Speech and Movement: speech and movement normal Attitude: cooperative Coding Level of Care Code Off vis,new,level 2 Diagnoses Lumbar strain S39.012A Assessment and Plan Assessment and Plan (1) Lumbar strain: Status: Acute Plan: See HPI concerning history of injury; [employer] 14 given to patient with work restrictions to 02/12/2024 with no restrictions effective 02/13/2024. Supportive measures as instructed today. [facility]-up with the [facility] on 02/13/2024, ED sooner should symptoms worsen or any other concerns develop. Patient acknowledges understanding through automotive parts interpreter (spouse). This note was generated with [employer] dictation software. It may contain incorrect words, spelling, and punctuation that were not noted in checking the note before signing. 02/06/24 1244 Date Peter Ness Signature: Date (if applicable) CC: Normal [facility] Emergency Department Summary on 02-04-2024 Emergency Department Summary [facility] Medical Records Department [address] [place] [address] Emergency Department Summary 02/04/24 MR#: [id number] Acct: [id number] Name: APARNA MOCK Rep #: [id number] : 1995 28 From: Maile Kohli DO PCP: Care Physician,No Primary Status:DEP ER Location: ED HPI History of Present Illness Chief Complaint: Back Detail of Chief Complaint: Back pain Informant: patient Narrative Narrative: Patient presents to the emergency department complaint of lower back pain that she has had for 3 days. Patient denies any injury. She is [place] speaking and using iPad automotive parts interpreter was able to obtain history. 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 She is currently on her menstrual period. She does complain of some dysuria. She has been there for 3 days. She denies fevers. She denies pain radiating down her legs. She denies weakness in the extremities. She has no medical history otherwise. Patient has no primary care physician. She has had no fever or vomiting. She denies abdominal pain. PFSH [facility] Medical History no medical history Home Medications ???Medication ???Instructions ???Recorded ???Last Taken ???Type cyclobenzaprine 10 mg tablet 10 mg PO TID PRN Muscle Spasm #20 02/04/24 Unknown Rx TABLETS naproxen 500 mg tablet 500 mg PO BID #20 tabs 02/04/24 Unknown Rx Allergy/AdvReac Type Severity Reaction Status Date / Time No Known Allergies Allergy Verified 02/04/24 09:07 Surgical History no surgical history Social History Smoking Status: Never smoker ROS ROS ED Review of Systems ROS Unobtainable: other Constitutional Constitutional ED: Reports lethargy; Denies chills, fever(s), sweats or weight loss Eyes Eyes: Denies blurry vision, change in vision or diplopia ENT ENT ED: Denies rhinorrhea or sore throat Cardiovascular Cardiovascular: Denies chest pain, orthopnea or racing heartbeat Respiratory/Chest Respiratory/Chest: Denies cough, dyspnea, dyspnea on exertion, orthopnea or sputum Gastrointestinal Gastrointestinal: Denies abdominal pain, diarrhea, nausea or vomiting Genitourinary Genitourinary ED: Reports dysuria; Denies hematuria or urinary frequency Musculoskeletal Musculoskeletal: Reports back pain; Denies arthralgias, myalgias or neck pain Integumentary Denies abscess, Abrasions or rash Neurologic Neurologic: Denies headache(s) or weakness Psychiatric Psychiatric: Denies anxiety, depression or suicidal thoughts Endocrine Endocrinology: Denies polydipsia, polyphagia or polyuria Hematologic/Lymphati c Hematologic/Lymphati c: Denies easy bleeding, easy bruising or lymphadenopathy Allergic/Immunologic Allergic/Immunologic ED: Denies mouth swelling, tongue swelling or urticaria EXAM Physical Exam Const Vital Signs: 02/04/24 08:52 Temperature 97.9 F Temperature Source Temporal Pulse Rate 80 Respiratory Rate 14 Blood Pressure 112/80 Blood Pressure Mean 90 Pulse Ox 98 Oxygen Delivery Method Room Air Positive well nourished and well developed General Appearance ED: well developed and NAD HEENT Reports TM's clear and moist mucous membranes normocephalic and atraumatic; Negative for trauma or tenderness Tympanic Membrane ED: Yes TM's clear Eyes PERRL and EOMs intact bilaterally General Eye ED: Negative for pale conjunctiva or scleral icterus Neck no lymphadenopathy, supple and no JVD General: Negative for tenderness Chest Wall inspection of chest normal and palpation of chest normal Chest: Negative for tenderness Resp normal respiratory effort and clear to auscultation bilaterally Effort and Inspection: Negative for respiratory distress or pain with movement Auscultation: Negative for rhonchi, wheezes or diminished lung sounds Cardio regular rate, regular rhythm, S1 normal heart sound, S2 normal heart sound and no murmurs Peripheral Pulses: pulses 2+ throughout GI normal to inspection, nondistended, normoactive bowel sounds, soft to palpation, non-tender, non- distended and no masses Back/Spine no CVA tenderness and no thoracic nor lumbar tenderness Back/Spine Narrative: Mild diffuse tenderness palpation over the paraspinal musculature bilaterally in the lumbar region. No bony tenderness on exam. She has negative straight leg raises. Deep tendon reflexes are plus 2 out of 4 bilaterally at the patella and Achilles. She has normal 5 extension. Extremity normal to inspection General Extremety ED: Negative for edema General Extremity: Negative for edema Neuro oriented x3, CN's II-XII intact bilaterally, no sensory deficits noted and gait normal Sensorium / Orientation: awake, alert, oriented to person, oriented to place and oriented to time Motor Exam: strength 5/5 throughout and strength abnorma (more content not included)... Normal [facility] ,Urineon 02-04-2024 Beta HCG ( test) Ql (U) Negative Normal [facility] Comment on above: Order Comment: CLEAN CATCH Result Comment: Very dilute urine specimens, as indicated by a low specific gravity, may not contain sales donor recruitment representative levels of hCG. If is still suspected, a first morning urine specimen should be collected 48 hours later and tested. Performed By: #### L 400.7600, L400.0001 #### [facility] [place], [address] Urinalysis, Completeon 02-03 RBC 50-100 SEEN Normal 0-5 [facility] Comment on above: Order Comment: CLEAN CATCH Performed By: #### L [id number], [id number] #### [facility] [address] [place], [address] BACTERIA 0 SEEN Normal None Seen [facility] Comment on above: Order Comment: CLEAN CATCH Performed By: #### L [id number], [id number] #### [facility] [address] [place], [address] EPI,SQUAMOUS 0 SEEN Normal 5-10 [facility] Comment on above: Order Comment: CLEAN CATCH Performed By: #### L 400.7600, [id number] #### [facility] [address] [place], [address] Mucus Ql (Urine sed) 0 SEEN Normal [facility] Comment on above: Order Comment: CLEAN CATCH Performed By: #### L [id number], [id number] #### [facility] [address] [place], [address] WBC 0 SEEN Normal 0-5 [facility] Comment on above: Order Comment: CLEAN CATCH Performed By: #### L [id number], [id number] #### [facility] [address] [place], [address] Encounters Encounter Date Encounter Type Care Provider Facility Start: 09-12-2024 ambulatory WESTON ELIZALDE MD Facilit y:[facility] Start: 08-02-2024 End: 08-06-2024 ambulatory TOSHA NORRIS MD [facility] Start: 08-02-2024 End: 08-02-2024 ambulatory NONE PHYSICIAN Facility:[facility] Start: 07-07-2024 End: 07-07-2024 Emergency department patient visit No Primary Care Physician Facility:[facility] Start: 06-23-2024 End: 06-23-2024 Patient encounter procedure Trina Chester APRN.[facility]AVEL REGISTERED NURSE NICU Work Phone: [facility] Comment on above: Right lower quadrant abdominal pain (Primary Dx) Start: 06-23-2024 End: 06-23-2024 ambulatory Facility:[facility] Start: 02-06-2024 End: 02-06-2024 ambulatory No Primary Care Physician Facility:[facility] Start: 02-04-2024 End: 02-04-2024 Emergency department patient visit Remus Ungur Facility:[facility] Plan of Treatment Date Care Activity Detail Author Start: 01-15-2024 Covid-19 Vaccine ( season) Covid-19 Vaccine ( season) [facility] Start: 01-15-2024 Influenza vaccination Influenza Vacc ine (#1) [facility] Start: 2016 Screening for malign ant neoplasm of cervix Cervical Cancer Screening [facility] Start: 2014 Hepatitis B Vaccine (1 of 3 - 19+ 3-dose series) Hepatitis B Vaccine (1 of 3 - 19+ 3-dose series) [facility] Start: 2014 Urine microalbumin profile DTa P,Tdap,Td Vaccine (1 - Tdap) [facility] Start: 2013 Anxiety Screening Anxiety Screening [facility] Start: 2013 Depression Screening Depression Scre ening [facility] Start: 2013 Hepatitis C screening Hepatitis C Sc elicia [facility] Start: 2013 [facility] Payers Date Payer Category Payer Unknown [id number] 2024 Unknown [id number] 2024 Self-pay 1995 Unknown [id number] 2.16.8 [id number] 1995 Unknown [id number] 2.16.8 [id number] 1995 Unknown [id number] 2.16.8 [id number] Unknown [id number] 2.16.8 [id number] Unknown [id number] 2.16.8 [id number] Unknown [id number] 2.16.8 [id number] Social History Date Type Detail Facility Tobacco smoking stat us NHIS Tobacco smoking consumption unknown [facility] Start: 1995 Sex assigned at Not on file [facility] Gender identity Not on file [facility] inic Progress note 06-23-2024 Note Date & Type Note Facility 06-23-2024 Note HNO ID: [id number] Author: TIRNA CHESTER APRN.CNP Service: ? Author Type: Nurse Practitioner Type: Progress Notes Filed: 06/23/2024 11:11 Note Text: Patient triaged at [facility]. Here today with worsening right lower quadrant pain over 1 week. Denies . Does not speak Peruvian, automotive parts interpreter with patient. Patient in no apparent distress at time of triage. I will refer to ER. [facility] History of Present illness Narrative 06-23-2024 Trina Chester APRN.ROSMERY - 06/23/2024 11:10 AM EST Note Date & Type Note Facility 06-23-2024 History of Presen t illness Narrative Patient triaged at [facility]. Here today with worsening right lower quadrant pain over 1 week. Denies . Does not speak Peruvian, automotive parts interpreter with patient. Patient in no apparent distress at time of triage. I will refer to ER. documented in this encounter [facility] Evaluation note Note Date & Type Note Facility Evaluation note Diagnosis Right lower quadrant abdominal pain- Primary Abdominal pain, right lower quadrant documented in this encounter [facility] Summary Purpose Family History No Family History Records FoundNo Family History Records FoundNo Family History Records Found Advance Directives No Advanced Directives Records FoundNo Advanced Directives Records FoundNo Advanced Directives Records Found Additional Source Comments Source Comments (unrecognize d section and content) In the event this informatio n is protected by the Federal Confidentiality of Alcohol and Drug Abuse Patient Records regulations: The Federal rules restrict any use of the information to criminally investigate or prosecute any alcohol or drug abuse patient.[facility] INFORMATION SOURCE (unrecogn ized section and content) DATE CREATED AUTHOR 06/25/2024 [facility] DATE CREATED AUTHOR AUTHOR'S ORGANIZ ATION 07/20/2024 [facility] DATE CREATED AUTHOR AUTHOR'S ORGANIZ ATION 09/23/2024 [facility] FOR RECORDS PERTAINING TO PATIENTS WHO ARE OR HAVE BEEN ENROLLED IN A CHEMICAL DEPENDENCY/SUBSTANCEABUSE PROGRAM, SOME INFORMATION MAY BE OMITTED. This clinical summary was aggregated from multiple sources. Caution should be exercised in using it in the provision of clinical care. This summary normalizes information from multiple sources, and as a consequence, information in this document may materially change the coding, format and clinical context of patient data. In addition, data may be omitted in some cases. CLINICAL DECISIONS SHOULD BE BASED ON THE PRIMARY CLINICAL RECORDS. [employer] [facility]. provides no warranty or guarantee of the accuracy or completeness of information in this document.
== END 2024-10-19 17:55 | disposition home or self-care (01) ==
LOC: WPOUT 15:27 → WP 15:28
PROVIDERS: Referring Provider Obstetrics & Gynecology; Visit Provider Obstetrics & Gynecology
DX: O99.891 Other specified diseases and conditions complicating pregnancy (principal); M25.561 Pain in right knee; R42 Dizziness and giddiness; Z3A.21 21 weeks gestation of pregnancy
CPT/HCPCS: 96365; 36415; 59025; 59050; 81002; 85025; 87086; 87088; 99221; G0378

== ENCOUNTER 2024-10-19 18:03 | Emergency (ER) | payer MEDICAID, SELFPAY ==
[2024-10-19 18:04] VITALS: BP 97/63; PULSE 78; RESP 16; TEMP 37.1; O2SAT 100
--- NOTE | 2024-10-19 19:26 | US_ITS ---
EXAM: US Duplex Right Lower Extremity Veins CLINICAL INDICATION: TECHNIQUE: Real-time duplex ultrasound scan of the right lower extremity veins integrating B-mode two-dimensional vascular structure, Doppler spectral analysis, color flow Doppler imaging and compression. COMPARISON: No relevant prior studies available. FINDINGS: DEEP VEINS: Probable nonocclusive thrombus in the distal right superficial femoral vein. SUPERFICIAL VEINS: Unremarkable. No thrombus in the visualized great saphenous vein. SOFT TISSUES: No acute findings. No popliteal cyst. US/Venous Duplex Imag/Limited/Uni IMPRESSION: Probable nonocclusive thrombus in the distal right superficial femoral vein. Reading Location: [id number]
--- NOTE | 2024-10-19 20:27 | EDS_ITS ---
HPI History of Present Illness Chief Complaint: Lower Extremity Injury [facility] Medical History (Updated 10/19/24 @ 22:[address] Raciel Espinosa, ) Lumbar strain Home Medications ?Medication ?Instructions ?Recorded ?Last Taken ?Type enoxaparin 80 mg/0.8 mL 70 mg (0.7 mL) subcut Q12H 9 0 days 10/19/24 Unknown Rx subcutaneous syringe (Lovenox) #126 mL Allergy/AdvReac Type Severity Reaction Status Date / Time No Known Allergies Allergy Verified 10/19/24 18:08 Social History Smoking Status: Never smoker EXAM Physical Exam Const Vital Signs: 10/19/24 18:04 10/19/24 22:41 Temperature 98.7 F 98.7 F Temperature Source Oral Pulse Rate 78 66 Respiratory Rate 16 16 Blood Pressure 97/63 105/66 Blood Pressure Mean 74 79 Pulse Ox 100 100 Oxygen Delivery Method Room Air MDM MDM MDM Narrative Medical decision making narrative: HISTORY OF PRESENT ILLNESS: Chief complaint: Right leg pain Lead Level Designer used: [employer] language interpreter via [employer] 29-year-old female presents right leg pain. Notes she is approximately 6 months . Denies vaginal bleeding, syncope or chest pain. Patient denies active cancer, being bedridden for greater than 3 days, denies unilateral leg swelling, denies any varicose veins, denies any calf tenderness, denies tenderness along deep venous system. Denies major surgery within 12 weeks, recent paralysis, previous DVT. REVIEW OF SYSTEMS: Pertinent positives: Right leg pain Pertinent negatives: Chest pain, shortness breath or syncope PHYSICAL EXAM: Nursing triage notes reviewed, Vital signs reviewed Constitutional: please see mdm HENT: MMM Eyes: Pupils equal round and reactive to light, Extraocular muscles intact Neck: No stridor, no JVD, full neck ROM Lungs: Clear to auscultation, No wheezing or rales. No increased work of breathing, no conversational dyspnea, no accessory muscle use, no nasal flaring. No respiratory distress noted Heart: Regular rate and rhythm, No murmurs, No rubs and No gallops, 2+ distal pulses (radial, femoral, posterior tibial) in all extremities Abdomen: Soft, there is no tenderness, rigidity, rebound or guarding, no obvious peritoneal signs, no palpable pulsatile abdominal masses, no auscultated abdominal bruit : No CVAT Extremities: No edema Neuro: No new focal neurological deficits, cranial nerves II through XII intact, 5/5 strength in all present extremities. Intact sensation to light touch in all present extremities, 2+ reflexes bilateral patella tendons. Skin: No rash or lesions noted MEDICAL DECISION MAKING: Chief Complaint: please see HPI External records reviewed: No prior imaging Factors affecting care: none Social determinants of health: none History obtained from others: significant other Consults: Vascular surgery (Dr. Baugh?[facility]), CONCRETE CONVEYOR OPERATOR (Dr. Vee), pharmacy MDM Narrative: Patient was initially hemodynamically stable, afebrile and nontoxic-appearing. Exam without obvious leg swelling. Lungs were clear. She is in no distress. I considered the following differential diagnosis: DVT,, Callahan's cyst ALL IMAGES (IF OBTAINED) HAVE BEEN PERSONALLY REVIEWED AND INTERPRETED BY MYSELF. DVT ultrasound shows distal right superficial vein DVT Discussed with vascular surgery recommended anticoagulation. Discussed with CONCRETE CONVEYOR OPERATOR recommended Lovenox. Recommended 1 mg/kg twice daily discussed with carlos mendoza. First dose was given here. Prescription was written. Strict return precautions bleeding precautions were discussed both in Urdu and in Swiss Creole The patient and/or family, caregivers express understanding. The patient and/or family, caregivers agrees with the plan. Shared decision making: I will have a discussion with the patient and or visitors regarding risk/benefits of further testing or admission. They will be made aware of of the risk/benefits inherent in this decision they will be given the opportunity to voice understanding. Total critical care time today provided was at least 0 minutes. This excludes separately billable procedures. Critical care time (if documented) is secondary to the patient having high probability of clinically significant/life threa tening deterioration in the patient's condition which required my urgent intervention. Impression: 1. Acute DVT 2. Dispo: Discharge home This note was generated with [employer] dictation software. It may contain incorrect words, spelling, and punctuation that were not noted in review of the chart prior to signing. Radiography Diagnostic Testing: Clinical Impression(s) from Imaging Studies Venous Duplex 10/19/24 19:26 IMPRESSION: Probable nonocclusive thrombus in the distal right superficial femoral vein. Reading Location: [facility] Discharge Plan Triage Chief Complaint: Lower Extremity Injury ED Provider: Raciel Espinosa Dx/Rx/DC Orders Clinical Impression: DVT (deep venous thrombosis) Instructions: DVT Dc Prescriptions: New enoxaparin [Lovenox] 80 mg/0.8 mL syringe 70 mg subcut Q12H 90 Days Qty: 126 0RF Primary Care Provider: Pasha Arshad Referrals: Ronak Vaughan MD [Med Staff - Active Staff] - Maria Guadalupe Johnson MD [Med Staff - Active Staff] - Activity Restrictions/Additional Instructions: Thank you for trusting us with your care today! Your labs and images were consistent with acute DVT. This will require treated with a blood thinner called an anticoagulant. Because you are the CONCRETE CONVEYOR OPERATOR ( physician) recommended Lovenox. Please take this medication as prescribed. Please take Tylenol (2 pills, 650 mg) every 6 hours as needed for pain and fever control. Please return to the emergency department if your symptoms change or worsen. Specifically you develop severe chest pain, shortness of breath or if you lose consciousness. Please return to the ED for further evaluation if you develop any bleeding issues including nosebleeding, dark stools, vaginal bleeding. Please return for evaluation if you suffer any head trauma. Please follow with CONCRETE CONVEYOR OPERATOR and vascular surgery for further outpatient evaluation and management. M?si paske ou f? nou konfyans pan swen ou shanell a! Rezilta laboratwa ak imaj ou yo te [place] av?k yon thrombose venn pwofon egi. Sa ap mande tretman ak yon medikaman pan fluidifye rader yo rele yon antikoagulan. Pout?t ou ansent, jinekol?g/obstetrisyen (dokt? gwos?s la) te rek?mande Lovenox. Tanpri pran medikaman sa a cj yo preskri li a. Tanpri pran Tylenol (2 grenn, 650 mg) chak 6 ?dtan cj sa neses? pan kontwole doul? ak lafy?v. Tanpri retounen nan s?vis ijans mei si sent?m ou yo chanje oswa bony pi mal. Espesyalcarole, si ou devlope gwo doul? nan pwatrin, souf kout oswa si ou p?di konesans. Tanpri retounen nan s?vis ijans mei pan plis evalyasyon si ou devlope nenp?t pwobl?m senyen tankou senyen nan nen, poupou nwa, senyen nan vajen. Tanpri retounen pan evalyasyon si ou soufri nenp?t ch?k nan t?t. Tanpri swiv ak jinekol?g/obstetrisyen ak chiriji vaskil? pan plis evalyasyon ak jesyon ekst?n. Print Language: Swiss Creole Disposition Disposition: Home, Self Care Discharge Date/Time: 10/19/24 22:43
[2024-10-19 22:05] VITALS: BMI 27.5
--- OUTSIDE RECORDS SUMMARY | 2024-10-19 22:13 | XMS RPT_ITS | CCD ---
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 Pathology Reports Accession: Collected Date/Time: Received Date/Time: Pathologist: [id number] 08/02/2024 09:29 EDT 08/02/2024 18:00 EDT Group Teacher Cytology Report SPECIMEN: Specimen Description: Liquid Prep [...] Reports Accession: Collected Date/Time: Received Date/Time: Pathologist: [id number] 08/02/2024 09:29 EDT 08/02/2024 18:00 EDT COMMENT: This Pap Test was successfully processed and evaluated with the assistance of the Droid system masterPrep Test Imaging System. Verified by Pathology report verified by [facility] Screened by: AIDA Electronically signed by Keisha DIAMOND (ASCP) Sign-Out Date: 08/07/2024 14:50 Performing Lab: [facility], [address] [place] [address] Pathology Dept Disclaimer The Pap test is a screening test for cervical cancer. As evidenced by published data, it is subject to both inherent false negative and false positive results. Your patient's results should be interpreted in context with pertinent clinical history including gynecological examination. Normal [facility] HPVon 08-07-2024 HPV Interp Abnormal See Interp HPVN [facility] Comment on above: Order Comment: Order placed by AP_HPV_ORDER rule from [id number] Result Comment: High Risk HPV Typing is [...] and sufficient DNA to be detected. See [facility] HPVO Performed By: #### H PV #### [place] [address] HPV Source Cervix Normal [facility] Comment on above: Order Comment: Order placed by AP_HPV_ORDER rule from [id number] Performed By: #### H PV #### [place] [id number] VARISon 08-07-[address] equiv Normal [facility] Comment on above: Result Comment: INTE RPRETATION OF VARICELLA IMMUNE STATUS IgG BY EIA: Negative: No detectable VZV IgG antibody. Positive: VZV IgG antibody Detected. If clinically indicated, order Varicella IgM to rule out recent infection. Equivocal: Equivocal for antibodies to VZV. Suggest repeat testing in 10-14 days. Performed By: #### A BOGEL ABSGEL, CBC, TSH, ADIFF, HIVRP, ANEU ####[place] [address] [place], [place] [address]#### RPR, HBSAG, VARIS, RUBIS ####[place] [address] [place] [address] CTPCRon 08-03-2024 C. trachomatis Interp Normal See CT Interp N [facility] Comment on above: Result Comment: C. t rachomatis DNA not detected. Specimen is presumptive negative for C. trachomatis. A negative result does not preclude C. trachomatis infection because results depend on adequate specimen collection, absence of inhibitors, and sufficient DNA to be detected. See CT Interp N Performed By: #### C TPCR, NGPCR1 #### [place] [address] C.trachomatis PCR Negative Normal Negative [facility] Comment on above: Result Comment: Mole cular (PCR) assay performed on the Krzysztof Nikolay 4800 system. Performed By: #### C TPCR, NGPCR1 #### [address] [address] Chlam Source Cervix Normal [facility] Comment on above: Performed By: #### C TPCR, NGPCR1 #### [address] [address] [id number] 08-03-2024 GC PCR Source Cervix Normal [facility] Comment on above: Performed By: #### C TPCR, NGPCR1 #### [place] [address] N. gonorrhoeae (PCR) Negative Normal Negative [facility] Comment on above: Result Comment: Mole cular (PCR) assay performed on the Krzysztof Nikolay 4800 System. Performed By: #### C TPCR, NGPCR1 #### [place] [id number] N. gonorrhoeae Interp Normal See NG Interp N [facility] Comment on above: Result Comment: N. g onorrhoeae DNA not detected. Specimen is presumptive negative for N. gonorrhoeae. A negative result does not preclude Neisseria gonorrhoeae infection because results depend on adequate specimen collection, absence of inhibitors, and sufficient DNA to be detected. See NG Interp N Performed By: #### C TPCR, NGPCR1 #### [facility] [address] [place], [place] [id number] RPRon 08-03-2024 Reagin Ab RPR Ql (S) Non-Reactive Normal Non-Reactive [facility] Comment on above: Result Comment: The RPR [...] BOGEL, ABSGEL, CBC, TSH, ADIFF, HIVRP, ANEU ####[place] [address]#### RPR, HBSAG, VARIS, RUBIS ####[place] [address] RUBISon 08-03-[address] Positive Normal Positive [facility] Comment on above: Result Comment: This immune status assay detects IgM and/or IgG antibody to Rubella. Interpret results in conjunction with clinical history. POS: Antibody detected; exposure at undetermined recent or distant time. If clinically indicated, order Rubella IGM to rule out recent infection. NEG: No antibody detected. Performed By: #### A BOGEL, ABSGEL, CBC, TSH, ADIFF, HIVRP, ANEU ####[place] [address]#### RPR, HBSAG, VARIS, RUBIS ####[place] [address] .Auto Diffon 08-02-2024 Basophil, Absolute 0.0 10 3/mcL Normal 0.0-0.2 [facility] Comment on above: Performed By: #### A BOGEL, ABSGEL, CBC, TSH, ADIFF, HIVRP, ANEU #### [place] [address] #### RPR, HBSAG, VARIS, RUBIS #### [address] [address] Basophils/100 WBC (Bld) 0.6 % Normal 0.0-2.5 [facility] Comment on above: Performed By: #### A BOGEL, ABSGEL, CBC, TSH, ADIFF, HIVRP, ANEU #### [place] [address] #### RPR, HBSAG, VARIS, RUBIS #### [address] [address] Eosinophil, Absolute 0.0 10 3/mcL Normal 0.0-0.7 [facility] Comment on above: Performed By: #### A BOGEL, ABSGEL, CBC, TSH, ADIFF, HIVRP, ANEU #### [place] [address] #### RPR, HBSAG, VARIS, RUBIS #### [address] [address] Eosinophils/100 WBC (Bld) 1.0 % Normal 0.0-7.0 [facility] Comment on above: Performed By: #### A BOGEL, ABSGEL, CBC, TSH, ADIFF, HIVRP, ANEU #### [place] [address] #### RPR, HBSAG, VARIS, RUBIS #### [address] [address] Lymphocyte, Absolute 1.0 10 3/mcL Normal 0.9-4.3 [facility] Comment on above: Performed By: #### A BOGEL, ABSGEL, CBC, TSH, ADIFF, HIVRP, ANEU #### [place] [address] #### RPR, HBSAG, VARIS, RUBIS #### [address] [address] Lymphocytes/100 WBC (Bld) 32.7 % Normal 20.0-40.0 [facility] Comment on above: Performed By: #### A BOGEL, ABSGEL, CBC, TSH, ADIFF, HIVRP, ANEU #### [place] [address] #### RPR, HBSAG, VARIS, RUBIS #### [address] [address] Monocyte, Absolute 0.3 10 3/mcL Normal 0.1-1.4 [facility] Comment on above: Performed By: #### A BOGEL, ABSGEL, CBC, TSH, ADIFF, HIVRP, ANEU #### [place] [address] #### RPR, HBSAG, VARIS, RUBIS #### [address] [address] Monocytes/100 WBC (Bld) 9.1 % Normal 2.0-13.0 [facility] Comment on above: Performed By: #### A BOGEL, ABSGEL, CBC, TSH, ADIFF, HIVRP, ANEU #### [place] [address] #### RPR, HBSAG, VARIS, RUBIS #### [address] [address] Neutrophils/100 WBC (Bld) 56.6 % Normal 50.0-75.0 [facility] Comment on above: Performed By: #### A BOGEL, ABSGEL, CBC, TSH, ADIFF, HIVRP, ANEU #### [place] [address] #### RPR, HBSAG, VARIS, RUBIS #### [address] [address] .NEUABSon 08-02-2024 Neutrophil, Absolute 1.8 10 3/mcL Low 2.3-8.1 [facility] Comment on above: Performed By: #### A BOGEL, ABSGEL, CBC, TSH, ADIFF, HIVRP, ANEU #### [place] [address] #### RPR, HBSAG, VARIS, RUBIS #### [address] [address] ABO/Rh (Gel)on 08-02-2024 ABO/Rh Interp Positive Invalid Interpretation Code [facility] Comment on above: Performed By: #### A BOGEL, ABSGEL, CBC, TSH, ADIFF, HIVRP, ANEU #### [address] [address] #### RPR, HBSAG, VARIS, RUBIS #### [address] [address] ABS (Gel)on 08-02-2024 ABSC Interp (Gel) Negative Normal [facility] Comment on above: Performed By: #### A BOGEL, ABSGEL, CBC, TSH, ADIFF, HIVRP, ANEU #### [place] [address] #### RPR, HBSAG, VARIS, RUBIS #### [place] [address] CBCon 08-02-2024 Erythrocyte distribution width (RBC) [Ratio] 15.4 % Normal 11.5-15.5 [facility] Comment on above: Performed By: #### A BOGEL, ABSGEL, CBC, TSH, ADIFF, HIVRP, ANEU #### [address] [address] #### RPR, HBSAG, VARIS, RUBIS #### [place] [address] Hematocrit (Bld) [Volume fraction] 35.0 % Normal 34.0-46.0 [facility] Comment on above: Performed By: #### A BOGEL, ABSGEL, CBC, TSH, ADIFF, HIVRP, ANEU #### [address] [address] #### RPR, HBSAG, VARIS, RUBIS #### [place] [id number] Hgb 11.4 G/dL Low 12.0-16.0 [facility] Comment on above: Performed By: #### A BOGEL, ABSGEL, CBC, TSH, ADIFF, HIVRP, ANEU #### [place] [address] #### RPR, HBSAG, VARIS, RUBIS #### [address] [address] MCH (RBC) [Entitic mass] 23.3 pg Low 27.0-33.0 [facility] Comment on above: Performed By: #### A BOGEL, ABSGEL, CBC, TSH, ADIFF, HIVRP, ANEU #### [place] [address] #### RPR, HBSAG, VARIS, RUBIS #### [address] [address] MCHC 32.4 G/dL Normal 32.0-36.0 [facility] Comment on above: Performed By: #### A BOGEL, ABSGEL, CBC, TSH, ADIFF, HIVRP, ANEU #### [place] [address] #### RPR, HBSAG, VARIS, RUBIS #### [address] [address] MCV (RBC) [Entitic vol] 71.9 fL Low 80.0-99.0 [facility] Comment on above: Performed By: #### A BOGEL, ABSGEL, CBC, TSH, ADIFF, HIVRP, ANEU #### [place] [address] #### RPR, HBSAG, VARIS, RUBIS #### [place] [address] Platelet 216 10 3/mcL Normal 150-450 [facility] Comment on above: Performed By: #### A BOGEL, ABSGEL, CBC, TSH, ADIFF, HIVRP, ANEU #### [place] [address] #### RPR, HBSAG, VARIS, RUBIS #### [place] [address] Platelet mean volume (Bld) [Entitic vol] 9.3 fL Normal 6.6-10.5 [facility] Comment on above: Performed By: #### A BOGEL, ABSGEL, CBC, TSH, ADIFF, HIVRP, ANEU #### [place] [address] #### RPR, HBSAG, VARIS, RUBIS #### [place] [address] RBC 4.87 10 6/mcL Normal 4.10-5.30 [facility] Comment on above: Performed By: #### A BOGEL, ABSGEL, CBC, TSH, ADIFF, HIVRP, ANEU #### [place] [address] #### RPR, HBSAG, VARIS, RUBIS #### [place] [address] WBC 3.2 10 3/mcL Low 4.5-10.8 [facility] Comment on above: Performed By: #### A BOGEL, ABSGEL, CBC, TSH, ADIFF, HIVRP, ANEU #### [place] [address] #### RPR, HBSAG, VARIS, RUBIS #### [place] [address] HBSAGon 08-02-2024 Hep B Surf Ag Non-Reactive Normal Non-Reactive [facility] Comment on above: Performed By: #### A BOGEL, ABSGEL, CBC, TSH, ADIFF, HIVRP, ANEU ####[place] [address]#### RPR, HBSAG, VARIS, RUBIS ####[place] [address] HIVRPon 08-02-2024 HIV p24 Antigen Non-Reactive Normal Non-Reactive [facility] Comment on above: Result Comment: Dete ction of p24 may be inhibited by biotin in the sample, causing false negative results in acute infection. Therefore do not test samples from patients who are taking biotin. Performed By: #### A BOGEL, ABSGEL, CBC, TSH, ADIFF, HIVRP, ANEU ####[place] [address]#### RPR, HBSAG, VARIS, RUBIS ####[place] [address] HIV P24 Int Non-Reactive Invalid Interpretation Code [facility] Comment on above: Performed By: #### A BOGEL, ABSGEL, CBC, TSH, ADIFF, HIVRP, ANEU ####[place] [address]#### RPR, HBSAG, VARIS, RUBIS ####[place] [address] Rapid HIV 1/2 Antibody Non-Reactive Normal Non-Reactive [facility] Comment on above: Performed By: #### A BOGEL, ABSGEL, CBC, TSH, ADIFF, HIVRP, ANEU ####[place] [address]#### RPR, HBSAG, VARIS, RUBIS ####[place] [address] RHIV 1/2 Ab Int Non-Reactive Invalid Interpretation Code [facility] Comment on above: Performed By: #### A BOGEL, ABSGEL, CBC, TSH, ADIFF, HIVRP, ANEU ####[place] [address]#### RPR, HBSAG, VARIS, RUBIS ####[place] [address] TSHon 08-02-2024 TSH Qn 2.46 m[IU]/L Normal 0.36-3.74 [facility] Comment on above: Performed By: #### A BOGEL, ABSGEL, CBC, TSH, ADIFF, HIVRP, ANEU #### [place] [address] #### RPR, HBSAG, VARIS, RUBIS #### [address], [place] [address] Emergency Department Summary on 07-07-2024 Emergency Department Summary [facility] Medical Records Department [address] [place] [address] Emergency Department Summary 07/07/24 MR#: [id number] Acct: [id number] Name: APARNA MOCK Rep #: [id number] : 1995 29 From: Cassie ARTIS PCP: [...] doctor. She is not on any medications. [facility] Medical History (Updated 07/07/24 @ 14:50 by [...] I provided the contact information for the [facility] center and recommended she take Tylenol as needed. She has no abdominal pain or bleeding send no emergent ultrasound is indicated. Return precautions were discussed and she was discharged in stable condition peer Lab Data Labs: Laboratory Results - last 24 hr 07/07/24 14:19 Urine Color Yellow Urine Clarity Cloudy Urine pH 7.0 Ur Specific [place] 1.015 Urine Protein Negative Urine Glucose (UA) [...] Labs: Labo (more content not included)... Normal [facility] ,Urineon 07-07-2024 Beta HCG ( test) Ql (U) Positive Abnormal [facility] Comment on above: Result Comment: PREG MARTIR TEST is *POSITIVE* Performed By: #### L 400.0001, L400.7600 #### [facility] [address] [place], [address] Urinalysis, Completeon 07-07 EPI,SQUAMOUS 0-5 SEEN Normal 5-10 [facility] Comment on above: Order Comment: DESTINEE CTOR TO SPECIFY Performed By: #### L 400.0001, L400.7600 #### [facility] [address] [place], [address] RBC 0 SEEN Normal 0-5 [facility] Comment on above: Order Comment: DESTINEE CTOR TO SPECIFY Performed By: #### L 400.0001, L400.7600 #### [facility] [address] [place], [address] WBC 0-5 SEEN Normal 0-5 [facility] Comment on above: Order Comment: DESTINEE CTOR TO SPECIFY Performed By: #### L 400.0001, L400.7600 #### [facility] [address] [place], [address] AMORPHOUS 3+ PHOS Normal [facility] Comment on above: Order Comment: DESTINEE CTOR TO SPECIFY Performed By: #### L 400.0001, L400.7600 #### [facility] [address] [place], [address] BACTERIA 0 SEEN Normal None Seen [facility] Comment on above: Order Comment: DESTINEE CTOR TO SPECIFY Performed By: #### L 400.0001, L400.7600 #### [facility] [address] [place], [address] Mucus Ql (Urine sed) 0 SEEN Normal [facility] Comment on above: Order Comment: COLLE CTOR TO SPECIFY Performed By: #### L 400.0001, L400.7600 #### [facility] [address] [place], [address] CNOVon 06-23-2024 CNOV Office Visit (UCWSTR) APARNA MOKC ([id number]) [address] [facility] Date Time Provider Department 06/23/24 10:30 AM TRINA CHESTER [facility] During your visit today, we recorded the following information about you: Trina Chester APRN.FRUIT HARVESTER MACHINE OPERATOR 06/23/2024 11:11 AM Signed Patient triaged at [facility]. Here today with worsening right lower quadrant pain over 1 week. Denies . Does not speak American, travel rn with patient. Patient in no apparent distress at time of triage. I will refer to ER. Allergies As of Date: 06/23/2024 (Not on File) Date Reviewed: Never Reviewed Primary Visit Diagnosis:Right lower quadrant abdominal pain [R10.31] Problem List As Of Date: 06/23/2024 (None) Encounter Status:Closed by TRINA CHESTER on 06/23/24 Normal [facility] Urgent Care Visit Reporton 0 02-06-2024 Urgent Care Visit Report [facility] [address], [address] [place], [place] [address] OFFICE VISIT Date of Service: 02/06/24 MR#: [id number] Acct: [id number] Name: APARNA MOCK Rep #: [id number] : 1995 Provider: STEFF Anaya Age/Sex: 28/F Location: [facility] Status: Signed Intake Vital Signs 02/04/24 08:52 [...] Chief Complaint: ED FU 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 Upon initial evaluation at [facility] ED there was no mention of a work-related back injury, though through her travel rn () pain was with lifting heavy product is previously stated. No chest pain, shortness of breath, and dyspnea on exertion, or caudal/ radicular complaints upon questioning. Pain is aggravated to touch and with flexion/extension at the waist. No sbst-mah-uigigdu products taken to assist. No other associated [...] other concerns develop. Patient acknowledges understanding through travel rn (spouse). This note was generated with PostRank dictation software. It may contain incorrect words, spelling, and punctuation that were not noted in checking the note before signing. 02/06/24 1244 Date Peter Ness Signature: Date (if applicable) CC: Normal [facility] Emergency Department Summary on 02-04-2024 Emergency Department Summary [facility] Medical Records Department [address] [place] [address] Emergency Department Summary 02/04/24 MR#: [id number] Acct: [id number] Name: APARNA MOCK Rep #: [id number] : 1995 28 From: Maile Kohli DO PCP: Care Physician,No Primary Status:DEP ER Location: ED HPI History of Present Illness Chief Complaint: Back Detail of Chief Complaint: Back pain Informant: patient Narrative Narrative: Patient presents to the emergency department complaint of lower back pain that she has had for 3 days. Patient denies any injury. She is [place]ander speaking and using iPad travel rn was able to obtain history. Patient states [...] or vomiting. She denies abdominal pain. [facility] Medical History no medical history Home Medications [...] strength abnorma (more content not included)... Normal [facility] ,Urineon 02-04-2024 Beta HCG ( test) Ql (U) Negative Normal [facility] Comment on above: Order Comment: CLEAN CATCH Result Comment: Very dilute urine specimens, as indicated by a low specific gravity, may not contain public relations representative levels of hCG. If is still suspected, a first morning urine specimen should be collected 48 hours later and tested. Performed By: #### L 400.7600, L400.0001 #### [facility] [place], [address] Urinalysis, Completeon 02-03 RBC 50-100 SEEN Normal 0-5 [facility] Comment on above: Order Comment: CLEAN CATCH Performed By: #### L 400.7600, L400.0001 #### [facility] [address] [place], [address] BACTERIA 0 SEEN Normal None Seen [facility] Comment on above: Order Comment: CLEAN CATCH Performed By: #### L 400.7600, L400.0001 #### [facility] [address] [place], [address] EPI,SQUAMOUS 0 SEEN Normal 5-10 [facility] Comment on above: Order Comment: CLEAN CATCH Performed By: #### L 400.7600, L400.0001 #### [facility] [address] [place], [address] Mucus Ql (Urine sed) 0 SEEN Normal [facility] Comment on above: Order Comment: CLEAN CATCH Performed By: #### L 400.7600, L400.0001 #### [facility] [address] [place], [address] WBC 0 SEEN Normal 0-5 [facility] Comment on above: Order Comment: CLEAN CATCH Performed By: #### L 400.7600, L400.0001 #### [facility] [address] [place], [address] Encounters Encounter Date Encounter Type Care Provider Facility Start: 09-12-2024 ambulatory WESTON ELIZALDE MD Facilit y:[facility] Start: 08-02-2024 End: 08-06-2024 ambulatory TOSHA NORRIS MD [facility] Start: 08-02-2024 End: 08-02-2024 ambulatory NONE PHYSICIAN Facility:[facility] Start: 07-07-2024 End: 07-07-2024 Emergency department patient visit No Primary Care Physician Facility:[facility] Start: 06-23-2024 End: 06-23-2024 Patient encounter procedure Trina Chester APRN.FRUIT HARVESTER MACHINE OPERATOR Work Phone: [facility] Comment on above: Right lower quadrant abdominal pain (Primary Dx) Start: 06-23-2024 End: 06-23-2024 ambulatory Facility:[facility] Start: 02-06-2024 End: 02-06-2024 ambulatory No Primary Care Physician Facility:[facility] Start: 02-04-2024 End: 02-04-2024 Emergency department patient visit Remus Ungur Facility:[facility] Plan of Treatment Date Care Activity Detail Author Start: 01-15-2024 Covid-19 Vaccine ( season) Covid-19 Vaccine ( season) [facility] Start: 01-15-2024 Influenza vaccination Influenza Vacc ine (#1) [facility] Start: 2016 Screening for malign ant neoplasm of cervix Cervical Cancer Screening [facility] Start: 2014 Hepatitis B Vaccine (1 of 3 - 19+ 3-dose series) Hepatitis B Vaccine (1 of 3 - 19+ 3-dose series) [facility] Start: 2014 Urine microalbumin profile DTa P,Tdap,Td Vaccine (1 - Tdap) [facility] Start: 2013 Anxiety Screening Anxiety Screening [facility] Start: 2013 Depression Screening Depression Scre ening [facility] Start: 2013 Hepatitis C screening Hepatitis C Sc elicia [facility] Start: 2013 HIV screening [facility] Payers Date Payer Category Payer Unknown [id number] 2024 Unknown [id number] 2024 Self-pay 1995 Unknown [id number] 2.16.8 [id number] 1995 Unknown [id number] 2.16.8 [id number] 1995 Unknown [id number] 2.16.8 [id number] Unknown [id number] 2.16.8 [id number] Unknown [id number] 2.16.8 [id number] Unknown [id number] 2.16.8 [id number] Social History Date Type Detail Facility Tobacco smoking stat us NHIS Tobacco smoking consumption unknown [facility] Start: 1995 Sex assigned at Not on file [facility] Gender identity Not on file [facility] inic Progress note 06-23-2024 Note Date & Type Note Facility 06-23-2024 Note HNO ID: [id number] Author: TRINA CHESTER APRN.CNP Service: ? Author Type: Nurse Practitioner Type: Progress Notes Filed: 06/23/2024 11:11 Note Text: Patient triaged at [facility]. Here today with worsening right lower quadrant pain over 1 week. Denies . Does not speak American, travel rn with patient. Patient in no apparent distress at time of triage. I will refer to ER. [facility] History of Present illness Narrative 06-23-2024 Trina Chester APRN.ROSMERY - 06/23/2024 11:10 AM EST Note Date & Type Note Facility 06-23-2024 History of Presen t illness Narrative Patient triaged at [facility]. Here today with worsening right lower quadrant pain over 1 week. Denies . Does not speak American, travel rn with patient. Patient in no apparent distress at time of triage. I will refer to ER. documented in this encounter [facility] Evaluation note Note Date & Type Note Facility Evaluation note Diagnosis Right lower quadrant abdominal pain- Primary Abdominal pain, right lower quadrant documented in this encounter [facility] Summary Purpose Family History No Family History [...] or prosecute any alcohol or drug abuse patient.[facility] INFORMATION SOURCE (unrecogn ized section and content) DATE CREATED AUTHOR 06/25/2024 [facility] DATE CREATED AUTHOR AUTHOR'S ORGANIZ ATION 07/20/[address] [facility] DATE CREATED AUTHOR AUTHOR'S ORGANIZ ATION 09/23/2024 [facility] FOR RECORDS PERTAINING TO PATIENTS WHO ARE [...] BE BASED ON THE PRIMARY CLINICAL RECORDS. [facility]. provides no warranty or guarantee of the accuracy or completeness of information in this document.
[2024-10-19] MEDS: Enoxaparin 80 MG/0.8 ML Syringe 70 MG SC (22:36)
[2024-10-19 22:41] VITALS: BP 105/66; PULSE 66; RESP 16; TEMP 37.1; O2SAT 100
== END 2024-10-19 22:43 | disposition home or self-care (01) ==
LOC: ED 22:10
PROVIDERS: Emergency Provider Emergency Medicine; PCP Obstetrics & Gynecology; Visit Provider Emergency Medicine
DX: O22.32 Deep phlebothrombosis in pregnancy, second trimester (principal); I82.401 Acute embolism and thrombosis of unspecified deep veins of right lower extremity; O99.891 Other specified diseases and conditions complicating pregnancy; M25.561 Pain in right knee; R42 Dizziness and giddiness; Z3A.21 21 weeks gestation of pregnancy
CPT/HCPCS: 36415; 59025; 59050; 81002; 85025; 87086; 87088; 93971; 99221; 99282; G0378; G0463

== ENCOUNTER 2024-10-31 09:40 | Emergency (ER) | payer MEDICAID, SELFPAY ==
[2024-10-31 09:40] VITALS: BP 102/68; PULSE 82; RESP 14; TEMP 36.1; O2SAT 98; BMI 24.5
--- NOTE | 2024-10-31 09:47 | EDS_ITS ---
HPI History of Present Illness HPI Narrative: Patient presents with right elbow pain that has been getting worse over the past 3 days. Patient states it has been constant. Patient states it is gradually getting worse. Patient denies any trauma or injury. Patient was recently diagnosed with DVT in her leg and is currently on Lovenox. Patient admits to some dizziness. Patient denies any chest pain or palpitations. Patient denies any shortness of breath or cough. Patient is also approximately 6 months p regnant. Chief Complaint: Upper Extremity Injury Informant: patient Limited: language barrier Onset/Context/Timing Onset: Days (3) Context: Gradual Onset Timing: Continuous Location: Right elbow Worsened by: Nothing Relieved by: Nothing Associated Symptoms Associated Symptoms: Negative for Parasthesia, Weakness or Loss of Funtion PFSH [facility] Medical History (Updated 10/31/24 @ 12:[address] Ronak Rock DO) DVT (deep venous thrombosis) Dizziness, nonspecific Lumbar strain Home Medications Medication Instructions Recorded Last Taken Type enoxaparin 80 mg/0.8 mL 70 mg (0.7 mL) subcut Q12H 9 0 days 10/19/24 Unknown Rx subcutaneous syringe (Lovenox) #126 mL Allergy/AdvReac Type Severity Reaction Status Date / Time No Known Allergies Allergy Verified 10/31/24 09:41 Surgical History no surgical history no surgical history Social History Smoking Status: Never smoker ROS ROS ED Constitutional Constitutional ED: Denies chills or fever(s) Eyes Eyes: Denies blurry vision or change in vision ENT ENT ED: Denies rhinorrhea or sore throat Cardiovascular Cardiovascular: Denies chest pain or palpitations Respiratory/Chest Respiratory/Chest: Denies cough or dyspnea Gastrointestinal Gastrointestinal: Denies nausea or vomiting Genitourinary Genitourinary ED: Denies dysuria or hematuria Musculoskeletal Musculoskeletal: Denies back pain or neck pain Integumentary Denies abscess or rash Neurologic Neurologic: Denies headache(s) or weakness Allergic/Immunologic Allergic/Immunologic ED: Denies mouth swelling or urticaria EXAM Physical Exam Const Vital Signs: 10/31/24 09:40 Temperature 97 F L Temperature Source Temporal Pulse Rate 82 Respiratory Rate 14 Blood Pressure 102/68 Blood Pressure Mean 79 Pulse Ox 98 Oxygen Delivery Method Room Air Positive well nourished and well developed General Appearance ED: well developed and NAD HEENT Reports moist mucous membranes Neck full ROM and supple Extremity Extremity Narrative: There is tenderness to palpation diffusely over the right elbow. There is no bony crepitance or step-off. Range of motion was slightly limited in all motions of the right elbow secondary to pain. There is no tenderness over the humerus or forearm. Radial pulses are equal bilaterally. Strength is 5/5 in the radial, median, and ulnar areas. Sensation was intact to light touch in the radial, median, and ulnar areas. Neuro oriented x3, CN's II-XII intact bilaterally, moves all extremities, no focal motor deficits and no sensory deficits noted Sensorium / Orientation: alert Motor Exam: strength 5/5 throughout Psych mental status grossly normal MDM MDM MDM Narrative Medical decision making narrative: Differential diagnosis includes tendinitis, ligament sprain, contusion, and occult fracture. X-rays of the right elbow will be obtained to assess for occult fracture and joint effusion. History & Record Review Additional record(s) reviewed:: Prior ED visit and Prior labs Radiography Diagnostic Testing: X-rays of the right elbow were obtained. There are 3 views. On my independent interpretation, there is no acute fracture. There is no joint effusion noted. There are no degenerative changes. Radiologist also interpreted the x-rays and agrees. Treatment and Re-Evaluation Narrative: Orthostatic vital signs were obtained and were within normal limits. Patient was advised of her findings. Patient was instructed to use ice to the area. Patient was instructed to take Tylenol as needed for pain. Patient was instructed to continue her anticoagulants as prescribed. Patient was instructed to follow-up with her primary care physician and [facility] in 5 to 7 days. Patient understood and was agreeable with the plan. All questions were answered Discharge Plan Triage Chief Complaint: Upper Extremity Injury ED Provider: Ronak Rock Dx/Rx/DC Orders Clinical Impression: Right elbow pain, Dizziness, nonspecific Instructions: ED Pain, Acute, Uncertain Cause Prescriptions: No Action enoxaparin [Lovenox] 80 mg/0.8 mL syringe 70 mg subcut Q12H 90 Days Qty: 126 0RF Primary Care Provider: Pasha Arshad Referrals: Pasha Arshad MD [Primary Care Provider] - 5-7 Days Print Language: Salvadorean Creole Disposition Disposition: Home, Self Care Discharge Date/Time: 10/31/24 12:32
--- NOTE | 2024-10-31 10:30 | RAD_ITS ---
PROCEDURE: ELBOW MIN 3 VIEWS 10/31/2024 REASON FOR EXAM: INJURY/PAIN TECHNIQUE: ELBOW MIN 3 VIEWS COMPARISON: None FINDINGS: Bones: No fracture is seen. Joints: No evidence of dislocation Soft tissues: Soft tissues are unremarkable. Other: RAD/Elbow min 3 Views IMPRESSION: No acute abnormality is seen. Reading Location: [place] [id number]
[2024-10-31 11:42] VITALS: BP 104/65; BP 98/72; BP 99/57; PULSE 62; PULSE 67
[2024-10-31 12:32] VITALS: BP 102/68; PULSE 82; RESP 14; TEMP 36.1; O2SAT 98
== END 2024-10-31 12:32 | disposition home or self-care (01) ==
PROVIDERS: Emergency Provider Emergency Medicine; PCP Obstetrics & Gynecology; Visit Provider Emergency Medicine
DX: O99.891 Other specified diseases and conditions complicating pregnancy (principal); M25.521 Pain in right elbow; R42 Dizziness and giddiness; Z79.01 Long term (current) use of anticoagulants; Z86.718 Personal history of other venous thrombosis and embolism; Z3A.00 Weeks of gestation of pregnancy not specified
CPT/HCPCS: 73080; 99283

== ENCOUNTER 2025-01-20 06:27 | Outpatient (CLI) | payer MEDICAID, SELFPAY ==
--- OUTSIDE RECORDS SUMMARY | 2025-01-20 06:34 | XMS RPT_ITS | CCD ---
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 Jean-Baptiste Attending Provider UnavailDr. Estiven Peña MD Referring Provider UnavailDr. Estiven Peña MD Other Provider Unavailable Dr. Raciel Espinosa DO Emergency Provider Dr. Tosha Arshad MD Primary Care Provider PHYSICIAN, NONE Primary Care Physician UnavailDr. Raciel Patterson DO Attending Provider Dr. Ronak Rock DO Emergency Provider Tosha Arshad Primary Care Unavailable Raciel Espinosa Attending Unavailable Care Physician, No Primary Primary Care Unava ilable Yfn Robledo Attending Unavailable Maile Kohli Attending Unavailable Care Physician, No Primary Primary Care Unava ilable Estiven Vee Consulting Unavailable Estiven Vee Attending Unavailable Estiven Vee Referring Unavailable Care Physician, No Primary Primary Care Unava ilable Tosha Arshad Primary Care Unavailable Simran Rodriguez Attending Unavailable Tosha Arshad Referring Unavailable Care Physician, No Primary Primary Care Unava ilable Care Physician, No Primary Referring Unava ilable Peter Rick Attending Unavailable Estiven Vee Attending Unavailable Estiven Vee Referring Unavailable Care Physician, No Primary Primary Care Unava ilable Tosha Arshad Primary Care Unavailable Ronak Rock Attending Unavailable PHYSICIAN, NONE Primary Care Unavailable WESTON ELIZALDE MD Attending Unavailable PHYSICIAN, NONE Primary Care Unavailable WESTON ELIZALDE MD Attending Unavailable PHYSICIAN, NONE Primary Care Unavailable WESTON ELIZALDE MD Attending Unavailable PHYSICIAN, NONE Primary Care Unavailable TOSHA ARSHAD MD Attending Unavailable PHYSICIAN, NONE Primary Care Unavailable WESTON ELIZALDE MD Attending Unavailable AMAURI VIDAL, JACQUI Shafer Attending Unav ailable PHYSICIAN, NONE Primary Care Unavailable PHYSICIAN, NONE Primary Care Unavailable TOSHA ARSHAD MD Consulting Unavailable TOSHA ARSHAD MD Attending Unavailable Medications Current Medications Medication Drug Class(es) Dates Sig (Normalized) Sig (Original) 0.8 ml enoxaparin sodium 100 mg/ml prefilled syringe (6 sources) Low Molecular Weight Heparin Start: 10-22-2024 enoxaparin 80 mg/0.8 mL injectable solution 0 Refill(s) Start Date: 10/22/24 Status: Ordered Medication Dispense Status: Completed Total Allowed Fills: 1 Fills Dispensed: 0 Start: 10-19-2024 Enoxaparin (Lo venox) 80 mg/0.8 mL syringe Active 70 mg SC Q12H 126 90 October 19, 2024 12:00am ferrous sulfate 200 mg oral tablet (2 sources) Start: 12-25-2024 ferrous sulfate 200 mg (65 mg elemental iron) oral tablet Dose : 200 mg = 1 tab(s), Oral, qDay, # 60 tab(s), 1 Refill(s), Pharmacy: [facility]/pharmacy #[id number], 31 weeks gestation of Anemia, 162.5, cm, 12/25/24 11:34:00 EDT, Height Start Date: 12/25/24 Status: Ordered Medication Dispense Status: Completed Quantity: 60.0 Unit: tab(s) Total Allowed Fills: 2 Fills Dispensed: 0 Indications: Anemia, unspecified; 31 weeks gestation of ; nitrofurantoin, macrocrystals 25 mg / nitrofurantoin, monohydrate 75 mg oral capsule (1 source) Nitrofuran Antibacterial Start: 01-15-2025 End: 01-20-2025 Macrobid 100 mg oral capsule Dose : 100 mg = 1 cap(s), Oral, BID, Take with food, X 5 day(s), # 10 cap(s), 0 Refill(s), 01/20/25 11:05:00 AM EDT, Pharmacy: [facility]/pharmacy #[id number], 162.5, cm, 01/15/25 10:52:00 EDT, Height Start Date: 01/15/25 Stop Date: 01/20/25 Status: Ordered Medication Dispense Status: Completed Quantity: 10.0 Unit: cap(s) Total Allowed Fills: 1 Fills Dispensed: 0 Multivitamins with Vitamin B Complex, Vitamin C, Minerals and L-Methylfolate oral capsule (5 sources) Start: 11-26-2024 take 1 capsule by mouth once daily Multivitamins with Vitamin B Complex, Vitamin C, Minerals and L-Methylfolate oral capsule Dose = 1 cap(s), Oral, Daily, # 60 cap(s), 2 Refill(s), Pharmacy: [facility]/pharmacy #[id number], 27 weeks gestation of DVT complicating , 162.5, cm, 11/26/24 10:26:00 EDT, Height Start Date: 11/26/24 Status: Ordered Medication Dispense Status: Completed Quantity: 60.0 Unit: cap(s) Total Allowed Fills: 3 Fills Dispensed: 0 Indications: Deep phlebothrombosis in , unspecified trimester; 27 weeks gestation of ; Start: 11-26-2024 take 1 capsule by mo uth once daily Multivitamins with Vitamin B Complex, Vitamin C, Minerals and L-Methylfolate oral capsule Dose = 1 cap(s), Oral, Daily, # 60 cap(s), 2 Refill(s), Pharmacy: [facility]/pharmacy #[id number], 27 weeks gestation of DVT complicating , 162.5, cm, 11/26/24 10:26:00 EDT, Height Start Date: 11/26/24 Status: Ordered Quantity: 60.0 Unit: cap(s) Repeat number: 3 Indications: Deep phlebothrombosis in , unspecified trimester; 27 weeks gestation of ; Start: 10-22-2024 take 1 capsule by mo uth once daily Multivitamins with Vitamin B Complex, Vitamin C, Minerals and L-Methylfolate oral capsule Dose = 1 cap(s), Oral, Daily, 0 Refill(s) Start Date: 10/22/24 Status: Ordered Repeat number: 1 Completed/Discontinued Medications Medication Drug Class(es) Dates Sig (Normalized) Sig (Original) cyclobenzaprine hydrochloride 10 mg oral tablet (3 sources) Muscle Relaxant Start: 02-04-2024 End: 10-19-2024 take 1 tablet by mouth three times daily as needed for muscle spasms Cyclobenzaprine 10 mg tablet Discontinued 10 mg PO THREE TIMES A DAY as needed for Muscle Spasm February 04, 2024 12:00am October 19, 2024 10:04pm naproxen 500 mg oral tablet (3 sources) Nonsteroidal Anti-inflammatory Drug Start: 02-04-2024 End: 10-19-2024 take 1 tablet by mouth twice daily Naproxen 500 mg tablet Discontinued 500 mg PO TWICE A DAY February 04, 2024 12:00am October 19, 2024 6:10pm Problems Active Problems Problem Classification Problem Date Documented Da te Episodic/Chronic Abdominal pain (2 sources) Right lower quadrant pain; Translations: [Right lower quadrant pain] Onset: 01-04-2025 06-23-2024 Episodic Conditions associated with dizziness or vertigo (7 sources) Dizziness; Translations: [Dizziness and giddiness] Onset: 01-04-2025 10-19-2024 Episodic Other complications of (4 sources) Antepartum deep vein thrombosis 10-22-2024 Episodic Other connective tissue disease (1 source) Pain in right leg; Translations: [Pain in right leg] Onset: 10-23-2024 Episodic Other non-traumatic joint disorders (7 sources) Pain in right knee; Translations: [Posterior right knee pain] Onset: 01-04-2025 10-19-2024 Episodic Other non-traumatic joint disorders (1 source) Pain in elbow; Translations: [Pain in right elbow] 10-31-2024 Episodic Other non-traumatic joint disorders (1 source) Pain in right elbow; Translations: [Pain in right elbow] Onset: 12-12-2024 Episodic Other and delivery including normal (20 sources) First trimester ; Translations: [Encounter for supervision of normal , unspecified, first trimester] Onset: 05-17-2024 07-15-2024 Episodic Phlebitis; thrombophlebitis and thromboembolism (2 sources) Deep venous thrombosis; Translations: [Acute embolism and thrombosis of unspecified deep veins of unspecified lower extremity] 10-19-2024 Episodic Residual codes; unclassified (2 sources) 34 weeks gestation of ; Translations: [34 weeks gestation of ] Onset: 01-15-2025 Episodic Spondylosis; intervertebral disc disorders; other back problems (4 sources) Backache; Translations: [Dorsalgia, unspecified] Onset: 10-19-2024 02-12-2024 Episodic Unclassified (1 source) Low back pain, unspecified; Translations: [Low back pain, unspecified] Onset: 10-19-2024 Past or Other Problems Problem Classification Problem Date Documented Da te Episodic/Chronic Sprains and strains (7 sources) Low back strain; Translations: [Strain of muscle, fascia and tendon of lower back, initial encounter] Onset: 02-16-2024 02-06-2024 Episodic Results Test Name Value Interpretation Reference Range Facility No Panel Informationon 01-15 Culture Urine 10,000 - 50,000 cfu/ml Mixed growth consistent with normal urogenital rain. [facility] Work Phone: GL1on 12-27-2024 Glucose [Mass/Vol] 161 mg/dL Normal [facility] Comment on above: Performed By: #### H PV #### [address] [address] [id number] 12-27-2024 Glucose 2 Hour (PGTT) 128 mg/dL Normal [facility] Comment on above: Result Comment: Gestational Glucose Tolerance based on 100 gm of oral glucose challenge: Glucose Fasting - 70-110 mg/dL Glucose 1 Hour - 70-179 mg/dL Glucose 2 Hour - 70-154 mg/dL Glucose 3 Hour - 70-139 mg/dL For diagnosis of gestational diabetes, at least two values must meet or exceed normal limits. Performed By: #### G [id number] #### [facility] [address] [place], [place] [address] GL3on 12-27-2024 Glucose [Mass/Vol] 81 mg/dL Normal [facility] Comment on above: Performed By: #### G L3 ####[facility] [place], [place] [address] GLFon 12-27-2024 Glucose [Mass/Vol] 78 mg/dL Normal 70-110 [facility] Comment on above: Performed By: #### H PV #### [address] [address] LABORATORYOrdered By: Paula Novoa on 12-27-2024 Glucose [Mass/Vol] 81 mg/dL Invalid Interpretation Code AO ADM SS Glucose 2 Hour (PGTT) 128 mg/dL Invalid Interpretation Code AO ADM SS Comment on above: Interpretive Data: Gestational Glucose Tolerance based on 100 gm of oral glucose challenge: Glucose Fasting - 70-110 mg/dL Glucose 1 Hour - 70-179 mg/dL Glucose 2 Hour - 70-154 mg/dL Glucose 3 Hour - 70-139 mg/dL For diagnosis of gestational diabetes, at least two values must meet or exceed normal limits. LABORATORYOrdered By: Enio Drake on 12-27-2024 Glucose [Mass/Vol] 161 mg/dL Invalid Interpretation Code AO ADM SS Glucose [Mass/Vol] 78 mg/dL Normal 70 - 110 mg/dL AO ADM SS HGBEon 12-12-2024 Hgb Interpretation Detected Normal [facility] Comment on above: Result Comment: Elec tronically Signed by: ROQUE MANCINI MD 12/12/2024 15:04 EDT Performed By: #### C BC, FERR, ADIFF, ANEU, GLU1P ####[place] [address]#### HGBE, RPR ####[place] [address] Hemoglobin A1 97.1 % Normal 96.0-98.5 [facility] Comment on above: Performed By: #### C BC, FERR, ADIFF, ANEU, GLU1P ####[place] [address]#### HGBE, RPR ####[place] [address] Hemoglobin A2 2.9 % Normal 1.5-4.0 [facility] Comment on above: Performed By: #### C BC, FERR, ADIFF, ANEU, GLU1P ####[place] [address]#### HGBE, RPR ####[place] [address] RPRon 12-11-2024 Reagin Ab RPR Ql (S) Non-Reactive Normal Non-Reactive [facility] Comment on above: Result Comment: [...] with abnormal serum globulins. Performed By: #### C BC, FERR, ADIFF, ANEU, GLU1P ####[place] [address]#### HGBE, RPR ####[place] [address] .Auto Diffon 12-10-2024 Basophil, Absolute 0.0 10 3/mcL Normal 0.0-0.3 [facility] Comment on above: Performed By: #### C BC, FERR, ADIFF, ANEU, GLU1P ####[place] [address]#### HGBE, RPR ####[place] [address] Lymphocyte, Absolute 1.0 10 3/mcL Normal 0.9-4.3 [facility] Comment on above: Performed By: #### C BC, FERR, ADIFF, ANEU, GLU1P ####[place] [address]#### HGBE, RPR ####[place] [address] Monocyte, Absolute 0.4 10 3/mcL Normal 0.1-1.4 [facility] Comment on above: Performed By: #### C BC, FERR, ADIFF, ANEU, GLU1P ####[place] [address]#### HGBE, RPR ####[place] [address] .Auto DiffOrdered By: SYSTEM SYSTEM on 12-10-2024 Basophils/100 WBC (Bld) 0.3 % Normal 0.0-2.5 A O Workflow SS Comment on above: Performed By: #### C BC, FERR, ADIFF, ANEU, GLU1P ####[place] [address]#### HGBE, RPR ####[address] [address] Eosinophil, Absolute 0.0 103/mcL Normal 0.0-0.7 AO Workflow SS Comment on above: Performed By: #### C BC, FERR, ADIFF, ANEU, GLU1P ####[place] [address]#### HGBE, RPR ####[address] [address] Eosinophils/100 WBC (Bld) 0.5 % Normal 0.0-6.0 AO Workflow SS Comment on above: Performed By: #### C BC, FERR, ADIFF, ANEU, GLU1P ####[place] [address]#### HGBE, RPR ####[address] [address] Lymphocytes/100 WBC (Bld) 23.6 % Normal 20.0-40.0 AO Workflow SS Comment on above: Performed By: #### C BC, FERR, ADIFF, ANEU, GLU1P ####[place] [address]#### HGBE, RPR ####[address] [address] Monocytes/100 WBC (Bld) 8.6 % Normal 2.0-13.0 A O Workflow SS Comment on above: Performed By: #### C BC, FERR, ADIFF, ANEU, GLU1P ####[place] [address]#### HGBE, RPR ####[address] [address] Neutrophils/100 WBC (Bld) 67.0 % Normal 50.0-75.0 AO Workflow SS Comment on above: Performed By: #### C BC, FERR, ADIFF, ANEU, GLU1P ####[place] [address]#### SAFIA, RPR ####[place] [address] .NEUABSon 12-10-2024 Neutrophil, Absolute 2.9 10 3/mcL Normal 2.3-8.1 [facility] Comment on above: Performed By: #### C BC, FERR, ADIFF, ANEU, GLU1P ####[place] [address]#### SAFIA, RPR ####[place] [address] CBCOrdered By: SYSTEM SYSTEM on 12-10-2024 Erythrocyte distribution width (RBC) [Ratio] 14.7 % Normal 11.5-15.5 AO Workflow SS Comment on above: Performed By: #### H PV #### [place] [address] Hematocrit (Bld) [Volume fraction] 31.6 % Low 34.0-46.0 AO Workflow SS Comment on above: Performed By: #### H PV #### [place] [address] MCH (RBC) [Entitic mass] 24.1 pg Low 27.0-33.0 AO Workflow SS Comment on above: Performed By: #### H PV #### [place] [address] MCHC 32.0 G/dL Normal 32.0-36.0 AO Workflow SS Comment on above: Performed By: #### H PV #### [place] [address] MCV (RBC) [Entitic vol] 75.2 fL Low 80.0-99.0 A O Workflow SS Comment on above: Performed By: #### H PV #### [place] [address] Platelet mean volume (Bld) [Entitic vol] 10.2 fL Normal 6.6-10.5 AO Workflow SS Comment on above: Performed By: #### H PV #### [place] [address] CBCon 12-10-2024 Hgb 10.1 G/dL Low 12.0-16.0 [facility] Comment on above: Performed By: #### H PV #### [place] [address] Platelet 164 10 3/mcL Normal 150-450 [facility] Comment on above: Performed By: #### H PV #### [place] [address] RBC 4.21 10 6/mcL Normal 4.10-5.30 [facility] Comment on above: Performed By: #### H PV #### [place] [address] WBC 4.3 10 3/mcL Low 4.5-10.8 [facility] Comment on above: Performed By: #### H PV #### [place] [address] FERROrdered By: SYSTEM SYSTE M on 12-10-2024 Ferritin [Mass/Vol] 13.0 ng/mL Normal 8.0-252.0 AO AD M SS Comment on above: Performed By: #### C BC, FERR, ADIFF, ANEU, GLU1P ####[place] [address]#### HGBE, RPR ####[place] [address] [id number] By: SYSTEM SYST EM on 12-10-2024 Glucose [Mass/Vol] 153 mg/dL High 70-140 AO ADM SS Comment on above: Performed By: #### C BC, FERR, ADIFF, ANEU, GLU1P ####[place] [address]#### HGBE, RPR ####[place] [address] LABORATORYOrdered By: SYSTEM SYSTEM on 12-10-2024 Basophils (Bld) [#/Vol] 0.0 103/mcL Normal 0.0 - 0.3 10^3/mcL AO Workflow SS Hemoglobin (Bld) [Mass/Vol] 10.1 G/dL Low 12.0 - 16.0 G/dL AO Workflow SS Lymphocytes (Bld) [#/Vol] 1.0 103/mcL Normal 0.9 - 4.3 10^3/mcL AO Workflow SS Monocytes (Bld) [#/Vol] 0.4 103/mcL Normal 0.1 - 1.4 10^3/mcL AO Workflow SS Neutrophils (Bld) [#/Vol] 2.9 103/mcL Normal 2.3 - 8.1 10^3/mcL AO Workflow SS Platelets (Bld) [#/Vol] 164 103/mcL Normal 150 - 450 10^3/mcL AO Workflow SS RBC (Bld) [#/Vol] 4.21 106/mcL Normal 4.10 - 5.3 0 10^6/mcL AO Workflow SS WBC (Bld) [#/Vol] 4.3 103/mcL Low 4.5 - 10.8 10^3/mcL AO Workflow SS Elbow min 3 Viewson 11-01-19 25 Elbow min 3 Views [facility] [address] [place] [address] Elbow min 3 Views MR#: [id number] Acct: [id number] Name: APARNA MOCK Rep #: [id number] : 1995 F 29 From: Nobrerto joseph MD PCP: Dr. Tosha Arshad MD Status: PRE ER Study: Elbow min 3 Views Date of Exam: 10/31/24 Exam# [id number] Ordering Dr: Ronak Rock DO PROCEDURE: ELBOW MIN 3 VIEWS 10/31/2024 REASON FOR EXAM: INJURY/PAIN TECHNIQUE: ELBOW MIN 3 VIEWS COMPARISON: None FINDINGS: Bones: No fracture is seen. Joints: No evidence of dislocation Soft tissues: Soft tissues are unremarkable. Other: RAD/Elbow min 3 Views IMPRESSION: No acute abnormality is seen. Reading Location: [place] [address] CC: Dr. Tosha Arshad MD; Dr. 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 Tosha Arshad MD Status:DEP ER Location: ED HPI History of Present Illness HPI Narrative: Patient presents with right elbow pain that has been getting worse over the past 3 days. Patient states it has been constant. Patient states it is gradually getting worse. Patient denies any trauma or injury. Patient was recently diagnosed with DVT in her leg and is currently on Lovenox. Patient admits to some dizziness. Patient denies any chest pain or palpitations. Patient denies any shortness of breath or cough. Patient is also approximately 6 months . Chief Complaint: Upper Extremity Injury Informant: patient Limited: language barrier Onset/Context/Timin g Onset: Days (3) Context: Gradual Onset Timing: Continuous Location: Right elbow Worsened by: Nothing Relieved by: Nothing Associated Symptoms Associated Symptoms: Negative for Parasthesia, Weakness or Loss of Funtion PFSH [facility] Medical History (Updated 10/31/24 @ 12:[address] Ronak Rock DO) DVT (deep venous thrombosis) Dizziness, nonspecific Lumbar strain Home Medications ???Medication ???Instructions ???Recorded ???Last Taken ???Type enoxaparin 80 mg/0.8 mL 70 mg (0.7 mL) subcut Q12H 90 days 10/19/24 Unknown Rx subcutaneous syringe (Lovenox) #126 mL Allergy/AdvReac Type Severity Reaction Status Date / Time No Known Allergies Allergy Verified 10/31/24 09:41 Surgical History no surgical history no surgical history Social History Smoking Status: Never smoker ROS ROS ED Constitutional Constitutional ED: Denies chills or fever(s) Eyes Eyes: Denies blurry vision or change in vision ENT ENT ED: Denies rhinorrhea or sore throat Cardiovascular Cardiovascular: Denies chest pain or palpitations Respiratory/Chest Respiratory/Chest: Denies cough or dyspnea Gastrointestinal Gastrointestinal: Denies nausea or vomiting Genitourinary Genitourinary ED: Denies dysuria or hematuria Musculoskeletal Musculoskeletal: Denies back pain or neck pain Integumentary Denies abscess or rash Neurologic Neurologic: Denies headache(s) or weakness Allergic/Immunologi c Allergic/Immunologi c ED: Denies mouth swelling or urticaria EXAM Physical Exam Const Vital Signs: 10/31/24 09:40 Temperature 97 F L Temperature Source Temporal Pulse Rate 82 Respiratory Rate 14 Blood Pressure 102/68 Blood Pressure Mean 79 Pulse Ox 98 Oxygen Delivery Method Room Air Positive well nourished and well developed General Appearance ED: well developed and NAD HEENT Reports moist mucous membranes Neck full ROM and supple Extremity Extremity Narrative: There is tenderness to palpation diffusely over the right elbow. There is no bony crepitance or step-off. Range of motion was slightly limited in all motions of the right elbow secondary to pain. There is no tenderness over the humerus or forearm. Radial pulses are equal bilaterally. Strength is 5/5 in the radial, median, and ulnar areas. Sensation was intact to light touch in the radial, median, and ulnar areas. Neuro oriented x3, CN's II-XII intact bilaterally, moves all extremities, no focal motor deficits and no sensory deficits noted Sensorium / Orientation: alert Motor Exam: strength 5/5 throughout Psych mental status grossly normal MDM MDM MDM Narrative Medical decision making narrative: Differential diagnosis includes tendinitis, ligament sprain, contusion, and occult fracture. X-rays of the right elbow will be obtained to assess for occult fracture and joint effusion. History Record Review Additional record(s) reviewed:: Prior ED visit and Prior labs Radiography Diagnostic Testing: X-rays of the right elbow were obtained. There are 3 views. On my independent interpretation, there is no acute fracture. There is no joint effusion noted. There are no degenerative changes. Radiologist also interpreted the x-rays and agrees. Treatment and Re-Evaluation Narrative: Orthostatic vital signs were obtained and were within normal limits. Patient was advised of her findings. Patient was instructed to use ice to the area. Patient was instructed to take Tylenol as needed for pain. Patient was instructed to continue her anticoagulants as prescribed. 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 Patient understood and was agreeable with the plan. All questions were answered Discharge Plan Triage Chief Complaint: Upper Extremity Injury ED Provider: [facility] (more content not included)... Normal [facility] Urine Cultureon 10-22-2024 URC Mixed Gram Positive Organisms [place] Count 11,000-25,000 MIXC Mixed contaminants. Submit a new specimen if indicated. Normal [facility] Comment on above: Performed By: #### M 100.2200 #### [facility] [address] [place], [address] Absolute lymphocyte countOrd ered By: Estiven Vee on 10-19-2024 Lymphocytes Auto (Unsp spec) [#/Vol] 0.95 10*3/uL 0.83-4.51 [facility] Absolute neutrophil countOrd ered By: Estiven Vee on 10-19-2024 Neutrophils (Bld) [#/Vol] 3.6 10*3/uL 2.0-7.7 [facility] Automated lymphocyte count a s percentage of total leukocytesOrdered By: Estiven Vee on 10-19-2024 Lymphocytes/100 WBC Auto (Unsp spec) 19.0 % 19-41 [facility] Basophil percentageOrdered B y: Estiven Vee on 10-19-2024 Basophils/100 WBC (Bld) 0.4 % 0-1 [facility] Bilirubin Test strip Ql (U)O rdered By: Estiven Vee on 10-19-2024 Bilirubin Ql (U) Negative Negative [facility] CBC W/Diff, Automatedon Absolute Lymph 0.95 X10 3/uL Normal 0.83-4.51 [facility] Comment on above: Performed By: #### L 100.0100 #### [facility] [address] [place], [address] Absolute Neut 3.6 X10 3/uL Normal 2.0-7.7 [facility] Comment on above: Performed By: #### L 100.0100 #### [facility] [address] [place], [address] Basophils/100 WBC (Bld) 0.4 % Normal 0-1 [facility] Comment on above: Performed By: #### L 100.0100 #### [facility] [address] [place], [address] Eosinophils/100 WBC (Bld) 0.4 % Normal 0-5 [facility] Comment on above: Performed By: #### L 100.0100 #### [facility] [address] [place], [address] Erythrocyte distribution width (RBC) [Ratio] 14.4 % Normal 11.6-14.6 [facility] Comment on above: Performed By: #### L 100.0100 #### [facility] [address] [place], [address] Hematocrit (Bld) [Volume fraction] 29.4 % Low 37-47 [facility] Comment on above: Performed By: #### L 100.0100 #### [facility] [address] [place], [address] Hemoglobin (Bld) [Mass/Vol] 9.3 g/dL Low 12.0-15.0 [facility] Comment on above: Performed By: #### L 100.0100 #### [facility] [address] [place], [address] IG% 0.400 Normal 0.0-0.9 [facility] Comment on above: Result Comment: IG% - Immature Granulocytes (promyelocytes, myelocytes and metamyelocytes) > 1% indicates that a LEFT SHIFT is Present. Performed By: #### L 100.0100 #### [facility] [address] [place], [address] Lymphocytes/100 WBC (Bld) 19.0 % Normal 19-41 [facility] Comment on above: Performed By: #### L 100.0100 #### [facility] [address] [place], [address] MCH (RBC) [Entitic mass] 23.8 pg Low 27.0-32.0 [facility] Comment on above: Performed By: #### L 100.0100 #### [facility] [address] [place], [address] MCHC (RBC) [Mass/Vol] 31.6 g/dL Low 32-36 [facility] Comment on above: Performed By: #### L 100.0100 #### [facility] [address] [place], [address] MCV (RBC) [Entitic vol] 75.4 fL Low 81-99 [facility] Comment on above: Performed By: #### L 100.0100 #### [facility] [address] [place], [address] Monocytes/100 WBC (Bld) 8.0 % Normal 0-10 [facility] Comment on above: Performed By: #### L 100.0100 #### [facility] [address] [place], [address] Neutrophils/100 WBC (Bld) 71.8 % High 47-70 [facility] Comment on above: Performed By: #### L 100.0100 #### [facility] [address] [place], [address] Nucleated RBC (Bld) [#/Vol] 0 10*3/uL Normal 0-5 [facility] Comment on above: Performed By: #### L 100.0100 #### [facility] [address] [place], [address] Platelet mean volume (Bld) [Entitic vol] 12.8 fL High 6.2-12.0 [facility] Comment on above: Performed By: #### L 100.0100 #### [facility] [address] [place], [address] Platelets (Bld) [#/Vol] 167 10*3/uL Normal 150-450 [facility] Comment on above: Performed By: #### L 100.0100 #### [facility] [address] [place], [address] RBC (Bld) [#/Vol] 3.90 10*6/uL Low 4.2-5.4 [facility] Comment on above: Performed By: #### L 100.0100 #### [facility] [address] [place], [address] RDW SD 38.1 fl Normal 35.1-43.9 [facility] Comment on above: Performed By: #### L 100.0100 #### [facility] [address] [place], [address] WBC (Bld) [#/Vol] 5.0 10*3/uL Normal 4.4-11.0 [facility] Comment on above: Performed By: #### L 100.0100 #### [facility] [address] [place], [address] Emergency Department Summary on 10-19-2024 Emergency Department Summary [facility] Medical Records Department [address] [place] [address] Emergency Department Summary 10/19/24 MR#: [id number] Acct: [id number] Name: APARNA MOCK Rep #: [id number] : 1995 29 From: Raciel Espinosa DO PCP: Dr. Tosha Arshad MD Status:DEP ER Location: ED HPI History of Present Illness Chief Complaint: Lower Extremity Injury [facility] Medical History (Updated 10/19/24 @ 22:[address] Raciel Espinosa DO) Lumbar strain Home Medications ???Medication ???Instructions ???Recorded ???Last Taken ???Type enoxaparin 80 mg/0.8 mL 70 mg (0.7 mL) subcut Q12H 90 days 10/19/24 Unknown Rx subcutaneous syringe (Lovenox) #126 mL Allergy/AdvReac Type Severity Reaction Status Date / Time No Known Allergies Allergy Verified 10/19/24 18:08 Social History Smoking Status: Never smoker EXAM Physical Exam Const Vital Signs: 10/19/24 18:04 10/19/24 22:41 Temperature 98.7 F 98.7 F Temperature Source Oral Pulse Rate 78 66 Respiratory Rate 16 16 Blood Pressure 97/63 105/66 Blood Pressure Mean 74 79 Pulse Ox 100 100 Oxygen Delivery Method Room Air [facility] MDM Narrative Medical decision making narrative: HISTORY OF PRESENT ILLNESS: Chief complaint: Right leg pain [employer] 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 Notes she is approximately 6 months . Denies vaginal bleeding, syncope or chest pain. Patient denies active cancer, being bedridden for greater than 3 days, denies unilateral leg swelling, denies any varicose veins, denies any calf tenderness, denies tenderness along deep venous system. Denies major surgery within 12 weeks, recent paralysis, previous DVT. REVIEW OF SYSTEMS: Pertinent positives: Right leg pain Pertinent negatives: Chest pain, shortness breath or syncope PHYSICAL EXAM: Nursing triage notes reviewed, Vital signs reviewed Constitutional: please see mdm HENT: MMM Eyes: Pupils equal round and reactive to light, Extraocular muscles intact Neck: No stridor, no JVD, full neck ROM Lungs: Clear to auscultation, No wheezing or rales. No increased work of breathing, no conversational dyspnea, no accessory muscle use, no nasal flaring. No respiratory distress noted Heart: Regular rate and rhythm, No murmurs, No rubs and No gallops, 2+ distal pulses (radial, femoral, posterior tibial) in all extremities Abdomen: Soft, there is no tenderness, rigidity, rebound or guarding, no obvious peritoneal signs, no palpable pulsatile abdominal masses, no auscultated abdominal bruit : No CVAT Extremities: No edema Neuro: No new focal neurological deficits, cranial nerves II through XII intact, 5/5 strength in all present extremities. Intact sensation to light touch in all present extremities, 2+ reflexes bilateral patella tendons. Skin: No rash or lesions noted MEDICAL DECISION MAKING: Chief Complaint: please see HPI External records reviewed: No prior imaging Factors affecting care: none Social determinants of health: none History obtained from others: significant other Consults: Vascular surgery (Dr. Baugh???Jeniffer General Vascular surgeon), HEAD START COORDINATOR (Dr. Vee), pharmacy MDM Narrative: Patient was initially hemodynamically stable, afebrile and nontoxic-appearing. Exam without obvious leg swelling. Lungs were clear. She is in no distress. I considered the following differential diagnosis: DVT,, Callahan's cyst ALL IMAGES (IF OBTAINED) HAVE BEEN PERSONALLY REVIEWED AND INTERPRETED BY MYSELF. DVT ultrasound shows distal right superficial vein DVT Discussed with vascular surgery recommended anticoagulation. Discussed with HEAD START COORDINATOR recommended Lovenox. Recommended 1 mg/kg twice daily discussed with pharmacy. First dose was given here. Prescription was written. Strict return precautions bleeding precautions were discussed both in Togolese and in Azerbaijani Creole The patient and/or family, caregivers express understanding. The patient and/or family, caregivers agrees with the plan. Shared decision making: I will have a discussion with the patient and or visitors regarding risk/benefits of further testing or admission. They will be made aware of of the risk/benefits inherent in this decision they will be given the opportunity to voice understanding. Total critical care time today provided was at least 0 minutes. This excludes separately billable procedures. Critical care time (if documented) is secondary to the patient having high probability of clinically significant/life threatening deterioration in the patient's condition which required my urgent intervention. Impression: 1. Acute DVT 2. Dispo: Discharge home (more content not included)... Normal [facility] Eosinophil percentageOrdered By: Estiven Vee on 10-19-2024 Eosinophils/100 WBC (Bld) 0.4 % 0-5 [facility] Erythrocyte distribution wid th ratioOrdered By: Estiven Vee on 10-19-2024 Erythrocyte distribution width (RBC) [Ratio] 14.4 % 11.6-14.6 [facility] Erythrocyte distribution wid th standard deviationOrdered By: Estiven Vee on 10-19-2024 Erythrocyte distribution width (RBC) [Ratio] 38.1 fl 35.1-43.9 [facility] Hematocrit Auto (Bld) [Volum e fraction]Ordered By: Estiven Vee on 10-19-2024 Hematocrit (Bld) [Volume fraction] 29.4 % Low 37-47 [facility] Hemoglobin measurementOrdere d By: Estiven Vee on 10-19-2024 Hemoglobin (Bld) [Mass/Vol] 9.3 g/dL Low 12.0-15.0 [facility] Immature granulocytes/100 WB C Auto (Bld)Ordered By: Estiven Vee on 10-19-2024 Immature granulocytes/100 WBC (Bld) 0.400 % 0.0-0.9 [facility] Comment on above: IG% - Immature Granu locytes (promyelocytes, myelocytes and metamyelocytes) > 1% indicates that a LEFT SHIFT is Present. Ketones Test strip Ql (U)Ord ered By: Estiven Vee on 10-19-2024 Ketones Ql (U) Negative Negative [facility] MCV (mean corpuscular volume ) determinationOrdered By: Estiven Vee on 10-19-2024 MCV (RBC) [Entitic vol] 75.4 fL Low 81-99 [facility] Mean corpuscular hemoglobin (MCH) determinationOrdered By: Estiven Vee on 10-19-2024 MCH (RBC) [Entitic mass] 23.8 pg Low 27.0-32.0 [facility] Mean corpuscular hemoglobin concentration (MCHC) determinationOrdered By: Estiven Vee on 10-19-2024 MCHC (RBC) [Mass/Vol] 31.6 g/dL Low 32-36 [facility] Mean platelet volume determi nationOrdered By: Estiven Vee on 10-19-2024 Platelet mean volume (Bld) [Entitic vol] 12.8 fL High 6.2-12.0 [facility] Monocyte percentageOrdered B y: Estiven Vee on 10-19-2024 Monocytes/100 WBC (Bld) 8.0 % 0-10 [facility] Neutrophil percentageOrdered By: Estivne Vee on 10-19-2024 Neutrophils/100 WBC (Bld) 71.8 % High 47-70 [facility] Nitrite Test strip Ql (U)Ord ered By: Estiven Vee on 10-19-2024 Nitrite Ql (U) Negative Negative [facility] Nucleated red blood cell per centageOrdered By: Estiven Vee on 10-19-2024 Nucleated RBC/100 WBC (Bld) [Ratio] 0 % 0-5 [facility] OB Triage Physician Noteon 0 10-19-2024 OB Triage Physician Note [facility] Medical Records Department [address] [place] [address] OB Triage Physician Note 10/19/24 1742 MR#: [id number] Acct: [id number] Name: APARNA MOCK Rep #: [id number] : 1995 29 From: Estiven Vee MD PCP: Care Physician,No Primary Status:REG CLI Y Location: [place] [id number] HPI - General General Date of Admission: 10/19/24 Date of Service: 10/19/24 HPI Narrative APARNA MOCK, is a 29 F G2, P1 who presents at 21 weeks gestation with lower abdominal crampiness and dizziness. She reports that the dizziness occurs primarily when the pain in her right knee flares. She reports that she has had this pain for the last 5 months since she became . She denies any bleeding and reports good movement. 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 Patient speaks very little Togolese but rather Afghan as she is from [facility]. She follows with a doctor in [place] for her obstetrical care. Maternal Data Information Gestational age: 21+ weeks [facility] Medical History (Updated 10/19/24 @ 17:[address] Estiven Vee MD) Lumbar strain Home Medications ???Medication ???Instructions ???Recorded ???Last Taken ???Type cyclobenzaprine 10 mg tablet 10 mg PO TID PRN Muscle Spasm #20 02/04/24 Unknown Rx TABLETS naproxen 500 mg tablet 500 mg PO BID #20 tabs 02/04/24 Un known Rx Allergy/AdvReac Type Severity Reaction Status Date / Time No Known Allergies Allergy Verified 10/19/24 16:53 Social History Smoking Status: Never smoker Physical Exam Const alert, oriented x3 and no apparent distress General Appearance: cooperative, comfortable and well kempt Orientation / Consciousness: awake, oriented to person and oriented to place Exam Limitations: no limitations HEENT normocephalic Resp normal respiratory effort and normal air movement Cardio regular rate GI GI Narrative: Abdominal size consistent with gestational age. Positive heart tones noted. Extremity full ROM Extremity Narrative: Normal left leg. Right leg with pain behind right knee. Patient indicates this been present for 5 months and started with . No edema noted in right leg and negative Homans' sign. However, palpation behind and just below the right knee shows moderate pain. General Extremity: normal exam except as noted Neuro oriented x3 and moves all extremities Psych mental status grossly normal Appearance: grossly normal and appropriate NST FHR Rate Baby A NST Reactive:: Appropriate for gestational age Assessment Plan (1) Posterior right knee pain: (2) Dizziness, nonspecific: (3) : PLAN: Plan Urine analysis and CBC unremarkable. Positive FHTs present and no contractions noted. Confirmed patient is no longer using naproxen. Patient indicates that her dizziness occurs primarily whenever her right knee pain flares. We discussed that with the warm weather drinking more water may help to alleviate some of the dizziness issues. She indicates that she has not had a doppler to rule out DVT so we we will return the patient to the emergency room to have this evaluated. Will give 1 week off work as work seems to aggravate the knee pain and dizziness; she can then discuss further with her OB in [place] whether or not she needs to be off work additional time. 10/19/24 1800 Date Estiven Vee MD Cosigner Signature (if applicable): Date __ CC: Dr. Mariposa Holloway DO; Dr. Estiven Vee MD; Dr. Maria Guadalupe Johnson MD; No Primary Care Physician Signed Normal [facility] Platelet countOrdered By: Kaleigh Vee on 10-19-2024 Platelets (Bld) [#/Vol] 167 10*3/uL 150-450 [facility] Protein Test strip Ql (U)Ord ered By: Estiven Vee on 10-19-2024 Protein Ql (U) 30 mg/dl High Negative [facility] RBC Auto (Bld) [#/Vol]Ordere d By: Estiven Vee on 10-19-2024 RBC (Bld) [#/Vol] 3.90 10*6/uL Low 4.2-5.4 [facility] Urinalysis, Routine (Dipstic k)on 10-19-2024 BILIRUBIN URINE Negative Normal Negative [facility] Comment on above: Order Comment: CLEAN CATCH Performed By: #### L 400.2010 #### [facility] [address] [place], [address] Clarity (U) Cloudy Normal Clear [facility] Comment on above: Order Comment: CLEAN CATCH Performed By: #### L 400.2010 #### [facility] [address] [place], [address] Color (U) Yellow Normal Yellow [facility] Comment on above: Order Comment: CLEAN CATCH Performed By: #### L 400.2010 #### [facility] [address] [place], [address] GLUCOSE, UR Normal Normal Normal [facility] Comment on above: Order Comment: CLEAN CATCH Performed By: #### L 400.2010 #### [facility] [address] [place], [address] KETONE UR Negative Normal Negative [facility] Comment on above: Order Comment: CLEAN CATCH Performed By: #### L 400.2010 #### [facility] [address] [place], [address] LEUK ESTERASE 500 /ul Abnormal Negative [facility] Comment on above: Order Comment: CLEAN CATCH Performed By: #### L 400.2010 #### [facility] [address] [place], [address] Nitrite Ql (U) Negative Normal Negative [facility] Comment on above: Order Comment: CLEAN CATCH Performed By: #### L 400.2010 #### [facility] [address] [place], [address] OCCULT BLOOD-UR Negative Normal Negative [facility] Comment on above: Order Comment: CLEAN CATCH Performed By: #### L 400.2010 #### [facility] [address] [place], [address] pH UR 6.5 Normal 5.0 - 8.0 [facility] Comment on above: Order Comment: CLEAN CATCH Performed By: #### L 400.2010 #### [facility] [address] [place], [address] PROT DIPSTX 30 mg/dl Abnormal Negative [facility] Comment on above: Order Comment: CLEAN CATCH Performed By: #### L 400.2010 #### [facility] [address] [place], [address] SP.GR. DIPSTX 1.015 Normal 1.002-1.030 [facility] Comment on above: Order Comment: CLEAN CATCH Performed By: #### L 400.2010 #### [facility] [address] [place], [address] UROBILI 1 mg/dl Abnormal Normal [facility] Comment on above: Order Comment: CLEAN CATCH Performed By: #### L 400.2010 #### [facility] [address] [place], [address] Urine clarityOrdered By: Harjeet Vee on 10-19-2024 Clarity (U) Cloudy Clear [facility] Urine color determinationOrd ered By: Estiven Vee on 10-19-2024 Color (U) Yellow Yellow [facility] Urine cultureOrdered By: Harjeet Vee on 10-19-2024 Bacteria identified Cx Nom (U) Positive Abnormal [facility] Urine glucose detectionOrder ed By: Estiven Vee on 10-19-2024 Glucose Ql (U) Normal mg/dl Normal [facility] Urine leukocyte esterase det ection by dipstickOrdered By: Estiven Vee on 10-19-2024 Leukocyte esterase Test strip Ql (U) 500 /ul High Negative [facility] Urine pHOrdered By: Estiven lam on 10-19-2024 pH (U) 6.5 [pH] 5.0 - 8.0 [facility] Urine specific gravity measu rementOrdered By: Estiven Vee on 10-19-2024 Specific gravity (U) [Rel density] 1.015 1.002-1.030 [facility] Urine urobilinogen measureme ntOrdered By: Estiven Vee on 10-19-2024 Urobilinogen Ql (U) 1 mg/dl High Normal [facility] Venous Duplex Imag/Limited/U nion 10-19-2024 Venous Duplex Imag/Limited/Uni [facility] Services [address] [place] [address] Venous Duplex Imag/Limited/Uni MR#: [id number] Acct: [id number] Name: APARNA MOCK Rep #: [id number] : 1995 F 29 From: Shyam Hart MD PCP: Care Physician,No Primary Status: PRE ER Study: Venous Duplex Imag/Limited/Uni Date of Exam: 0 10/19/24 Exam# [id number] Ordering Dr: Provider,Ed P. EXAM: US Duplex Right Lower Extremity Veins CLINICAL INDICATION: TECHNIQUE: Real-time duplex ultrasound scan of the right lower extremity veins integrating B-mode two-dimensional vascular structure, Doppler spectral analysis, color flow Doppler imaging and compression. COMPARISON: No relevant prior studies available. FINDINGS: DEEP VEINS: Probable nonocclusive thrombus in the distal right superficial femoral vein. SUPERFICIAL VEINS: Unremarkable. No thrombus in the visualized great saphenous vein. SOFT TISSUES: No acute findings. No popliteal cyst. US/Venous Duplex Imag/Limited/Uni IMPRESSION: Probable nonocclusive thrombus in the distal right superficial femoral vein. Reading Location: [facility] ER CC: ED PHYSICIAN PROVIDER; No Primary Care Physician Pipeline Inspector: Signed Normal [facility] White blood cell (WBC) count Ordered By: Estiven Vee on 10-19-2024 WBC (Bld) [#/Vol] 5.0 10*3/uL 4.4-11.0 [facility] Corporate Wellness Coordinator Cytology Reporton 2024 Corporate Wellness Coordinator Cytology Report . Pathology Reports Accession: Collected Date/Time: Received Date/Time: Pathologist: [id number] 08/02/2024 09:29 EDT 08/02/2024 18:00 EDT Corporate Wellness Coordinator Cytology Report SPECIMEN: Specimen Description: Liquid Prep w/ HPV Specimen: Cervical/Endocervic al Screening or Diagnostic: Screening RELEVANT HISTORY: LMP: 06/09 : Yes SPECIMEN ADEQUACY: SATISFACTORY FOR EVALUATION Endocervical/Transf ormational zone component present INTERPRETATION/RESU LTS: NEGATIVE FOR INTRAEPITHELIAL LESION OR MALIGNANCY ORGANISMS: [...] Reports Accession: Collected Date/Time: Received Date/Time: Pathologist: [id number] 08/02/2024 09:29 EDT 08/02/2024 18:00 EDT COMMENT: This Pap Test was successfully processed and evaluated with the assistance of the [employer] Crate[employer] Test Imaging System. Verified by Pathology report verified by [facility] Screened by: AIDA Electronically signed by Keisha DIAMOND (ASCP) Sign-Out Date: 08/07/2024 14:50 Performing Lab: [facility], [address] [place] [address] Pathology Dept Disclaimer The Pap test is a screening test for cervical cancer. As evidenced by published data, it is subject to both inherent false negative and false positive results. Your patient's results should be interpreted in context with pertinent clinical history including gynecological examination. Normal [facility] HPVon 08-07-2024 HPV Interp Abnormal See Interp HPVN [facility] Comment on above: Order Comment: Order placed by AP_HPV_ORDER rule from [id number] Result Comment: High Risk HPV Typing is [...] and sufficient DNA to be detected. See [facility] HPVO Performed By: #### H PV #### [place] [address] HPV Source Cervix [facility] Comment on above: Order Comment: Order placed by AP_HPV_ORDER rule from [id number] Performed By: #### H PV #### [place] [address] VARISon 08-07-[address] equiv Normal [facility] Comment on above: Result Comment: INTE RPRETATION OF VARICELLA IMMUNE STATUS IgG BY EIA: Negative: No detectable VZV IgG antibody. Positive: VZV IgG antibody Detected. If clinically indicated, order Varicella IgM to rule out recent infection. Equivocal: Equivocal for antibodies to VZV. Suggest repeat testing in 10-14 days. Performed By: #### H PV #### [place] [id number] CTPCRon 08-03-2024 C. trachomatis Interp Normal See CT Interp N [facility] Comment on above: Result Comment: C. t rachomatis DNA not detected. Specimen is presumptive negative for C. trachomatis. A negative result does not preclude C. trachomatis infection because results depend on adequate specimen collection, absence of inhibitors, and sufficient DNA to be detected. See CT Interp N Performed By: #### H PV #### [place] [address] C.trachomatis PCR Negative Normal Negative [facility] Comment on above: Result Comment: Mole cular (PCR) assay performed on the Krzysztof Nikolay 4800 system. Performed By: #### H PV #### [place] [address] Chlam Source Cervix Normal [facility] Comment on above: Performed By: #### H PV #### [place] [address] [id number] 08-03-2024 GC PCR Source Cervix Normal [facility] Comment on above: Performed By: #### H PV #### [place] [address] N. gonorrhoeae (PCR) Negative Normal Negative [facility] Comment on above: Result Comment: Mole cular (PCR) assay performed on the Krzysztof Nikolay 4800 System. Performed By: #### H PV #### [place] [address] N. gonorrhoeae Interp Normal See NG Interp N [facility] Comment on above: Result Comment: N. g onorrhoeae DNA not detected. Specimen is presumptive negative for N. gonorrhoeae. A negative result does not preclude Neisseria gonorrhoeae infection because results depend on adequate specimen collection, absence of inhibitors, and sufficient DNA to be detected. See NG Interp N Performed By: #### H PV #### [place] [address] RPRon 08-03-2024 Reagin Ab RPR Ql (S) Non-Reactive Normal Non-Reactive [facility] Comment on above: Result Comment: [...] with abnormal serum globulins. Performed By: #### H PV #### [place] [address] RUBISon 08-03-[address] Positive Normal Positive [facility] Comment on above: Result Comment: This immune status assay detects IgM and/or IgG antibody to Rubella. Interpret results in conjunction with clinical history. POS: Antibody detected; exposure at undetermined recent or distant time. If clinically indicated, order Rubella IGM to rule out recent infection. NEG: No antibody detected. Performed By: #### H PV #### [place] [address] .Auto Diffon 08-02-2024 Basophil, Absolute 0.0 10 3/mcL Normal 0.0-0.2 [facility] Comment on above: Performed By: #### T SH, ANEU, ABOGEL, ABSGEL, CBC, ADIFF, HIVRP #### [place] [address] #### VARIS, RUBIS, RPR, HBSAG #### [place] [address] Basophils/100 WBC (Bld) 0.6 % Normal 0.0-2.5 A [facility] Comment on above: Performed By: #### T SH, ANEU, ABOGEL, ABSGEL, CBC, ADIFF, HIVRP #### [place] [address] #### VARIS, RUBIS, RPR, HBSAG #### [place] [address] Eosinophil, Absolute 0.0 10 3/mcL Normal 0.0-0.7 [facility] Comment on above: Performed By: #### T SH, ANEU, ABOGEL, ABSGEL, CBC, ADIFF, HIVRP #### [place] [address] #### VARIS, RUBIS, RPR, HBSAG #### [address] [address] Eosinophils/100 WBC (Bld) 1.0 % Normal 0.0-7.0 [facility] Comment on above: Performed By: #### T SH, ANEU, ABOGEL, ABSGEL, CBC, ADIFF, HIVRP #### [place] [place] [address] #### VARIS, RUBIS, RPR, HBSAG #### [address] [address] Lymphocyte, Absolute 1.0 10 3/mcL Normal 0.9-4.3 [facility] Comment on above: Performed By: #### T SH, ANEU, ABOGEL, ABSGEL, CBC, ADIFF, HIVRP #### [place] [address] #### VARIS, RUBIS, RPR, HBSAG #### [address] [address] Lymphocytes/100 WBC (Bld) 32.7 % Normal 20.0-40.0 [facility] Comment on above: Performed By: #### T SH, ANEU, ABOGEL, ABSGEL, CBC, ADIFF, HIVRP #### [place] [address] #### VARIS, RUBIS, RPR, HBSAG #### [address] [address] Monocyte, Absolute 0.3 10 3/mcL Normal 0.1-1.4 [facility] Comment on above: Performed By: #### T SH, ANEU, ABOGEL, ABSGEL, CBC, ADIFF, HIVRP #### [place] [address] #### VARIS, RUBIS, RPR, HBSAG #### [address] [address] Monocytes/100 WBC (Bld) 9.1 % Normal 2.0-13.0 [facility] Comment on above: Performed By: #### T SH, ANEU, ABOGEL, ABSGEL, CBC, ADIFF, HIVRP #### [address] [address] #### VARIS, RUBIS, RPR, HBSAG #### [address] [address] Neutrophils/100 WBC (Bld) 56.6 % Normal 50.0-75.0 [facility] Comment on above: Performed By: #### T SH, ANEU, ABOGEL, ABSGEL, CBC, ADIFF, HIVRP #### [address] [address] #### VARIS, RUBIS, RPR, HBSAG #### [address] [address] .NEUABSon 08-02-2024 Neutrophil, Absolute 1.8 10 3/mcL Low 2.3-8.1 [facility] Comment on above: Performed By: #### T SH, ANEU, ABOGEL, ABSGEL, CBC, ADIFF, HIVRP #### [address] [address] #### VARIS, RUBIS, RPR, HBSAG #### [address] [address] ABO/Rh (Gel)on 08-02-2024 ABO/Rh Interp Positive Invalid Interpretation Code [facility] Comment on above: Performed By: #### T SH, ANEU, ABOGEL, ABSGEL, CBC, ADIFF, HIVRP #### [address] [address] #### VARIS, RUBIS, RPR, HBSAG #### [address] [address] ABS (Gel)on 08-02-2024 ABSC Interp (Gel) Negative Normal [facility] Comment on above: Performed By: #### T SH, ANEU, ABOGEL, ABSGEL, CBC, ADIFF, HIVRP #### [address] [address] #### VARIS, RUBIS, RPR, HBSAG #### [address] [address] CBCon 08-02-2024 Erythrocyte distribution width (RBC) [Ratio] 15.4 % Normal 11.5-15.5 [facility] Comment on above: Performed By: #### T SH, ANEU, ABOGEL, ABSGEL, CBC, ADIFF, HIVRP #### [place] [address] #### VARIS, RUBIS, RPR, HBSAG #### [place] [address] Hematocrit (Bld) [Volume fraction] 35.0 % Normal 34.0-46.0 [facility] Comment on above: Performed By: #### T SH, ANEU, ABOGEL, ABSGEL, CBC, ADIFF, HIVRP #### [place] [address] #### VARIS, RUBIS, RPR, HBSAG #### [place] [address] Hgb 11.4 G/dL Low 12.0-16.0 [facility] Comment on above: Performed By: #### T SH, ANEU, ABOGEL, ABSGEL, CBC, ADIFF, HIVRP #### [place] [address] #### VARIS, RUBIS, RPR, HBSAG #### [place] [address] MCH (RBC) [Entitic mass] 23.3 pg Low 27.0-33.0 [facility] Comment on above: Performed By: #### T SH, ANEU, ABOGEL, ABSGEL, CBC, ADIFF, HIVRP #### [place] [address] #### VARIS, RUBIS, RPR, HBSAG #### [address] [address] MCHC 32.4 G/dL Normal 32.0-36.0 [facility] Comment on above: Performed By: #### T SH, ANEU, ABOGEL, ABSGEL, CBC, ADIFF, HIVRP #### [place] [address] #### VARIS, RUBIS, RPR, HBSAG #### [place] [address] MCV (RBC) [Entitic vol] 71.9 fL Low 80.0-99.0 [facility] Comment on above: Performed By: #### T SH, ANEU, ABOGEL, ABSGEL, CBC, ADIFF, HIVRP #### [place] [address] #### VARIS, RUBIS, RPR, HBSAG #### [place] [address] Platelet 216 10 3/mcL Normal 150-450 [facility] Comment on above: Performed By: #### T SH, ANEU, ABOGEL, ABSGEL, CBC, ADIFF, HIVRP #### [place] [address] #### VARIS, RUBIS, RPR, HBSAG #### [place] [address] Platelet mean volume (Bld) [Entitic vol] 9.3 fL Normal 6.6-10.5 [facility] Comment on above: Performed By: #### T SH, ANEU, ABOGEL, ABSGEL, CBC, ADIFF, HIVRP #### [place] [address] #### VARIS, RUBIS, RPR, HBSAG #### [place] [address] RBC 4.87 10 6/mcL Normal 4.10-5.30 [facility] Comment on above: Performed By: #### T SH, ANEU, ABOGEL, ABSGEL, CBC, ADIFF, HIVRP #### [place] [id number] #### VARIS, RUBIS, RPR, HBSAG #### [place] [address] WBC 3.2 10 3/mcL Low 4.5-10.8 [facility] Comment on above: Performed By: #### T SH, ANEU, ABOGEL, ABSGEL, CBC, ADIFF, HIVRP #### [place] [address] #### VARIS, RUBIS, RPR, HBSAG #### [place] [address] HBSAGon 08-02-2024 Hep B Surf Ag Non-Reactive Normal Non-Reactive [facility] Comment on above: Performed By: #### H PV #### [place] [address] HIVRPon 08-02-2024 HIV p24 Antigen Non-Reactive Normal Non-Reactive [facility] Comment on above: Result Comment: Dete ction of p24 may be inhibited by biotin in the sample, causing false negative results in acute infection. Therefore do not test samples from patients who are taking biotin. Performed By: #### H PV #### [place] [address] HIV P24 Int Non-Reactive Invalid Interpretation Code [facility] Comment on above: Performed By: #### H PV #### [place] [address] Rapid HIV 1/2 Antibody Non-Reactive Normal Non-Reactiv e [facility] Comment on above: Performed By: #### H PV #### [place] [address] RHIV 1/2 Ab Int Non-Reactive Invalid Interpretation Code [facility] Comment on above: Performed By: #### H PV #### [place] [address] TSHon 08-02-2024 TSH Qn 2.46 m[IU]/L Normal 0.36-3.74 [facility] Comment on above: Performed By: #### T SH, ANEU, ABOGEL, ABSGEL, CBC, ADIFF, HIVRP #### [facility] [address] [place], [place] [address] #### VARIS, RUBIS, RPR, HBSAG #### [facility] [address] [place] [address] Amorphous sediment detection in urine sediment by light microscopyOrdered By: Cassie Pearson on 07-07-2024 Amorphous sediment LM Ql (Urine sed) 3+ PHOS [facility] Bilirubin Test strip Ql (U)O rdered By: Cassie Pearson on 07-07-2024 Bilirubin Ql (U) Negative Negative [facility] Emergency Department Summary on 07-07-2024 Emergency Department Summary [facility] Medical Records Department [address] [place] [address] Emergency Department Summary 07/07/24 MR#: [id number] Acct: [id number] Name: APARNA MOCK Rep #: [id number] : 1995 29 From: Cassie ARTIS PCP: [...] doctor. She is not on any medications. [facility] Medical History (Updated 07/07/24 @ 14:50 by [...] I provided the contact information for the [facility] center and recommended she take Tylenol as needed. She has no abdominal pain or bleeding send no emergent ultrasound is indicated. Return precautions were discussed and she was discharged in stable condition peer Lab Data Labs: Laboratory Results - last 24 hr 07/07/24 14:19 Urine Color Yellow Urine Clarity Cloudy Urine pH 7.0 Ur Specific Triplett 1.015 Urine Protein Negative Urine Glucose (UA) [...] Labs: Labo (more content not included)... Normal [facility] Ketones Test strip Ql (U)Ord ered By: Cassie Pearson on 07-07-2024 Ketones Ql (U) Negative Negative [facility] Microscopic analysis of urin e for red blood cells (RBC)Ordered By: Cassie Pearson on 07-07-2024 Microscopic analysis of urine for red blood cells (RBC) 0 SEEN /hpf 0-5 [facility] Mucus LM Ql (Urine sed)Order ed By: Cassie Pearson on 07-07-2024 Mucus Ql (Urine sed) 0 SEEN /hpf [facility] Nitrite Test strip Ql (U)Ord ered By: Cassie Pearson on 07-07-2024 Nitrite Ql (U) Negative Negative [facility] ,Urineon 07-07-2024 Beta HCG ( test) Ql (U) Positive Abnormal [facility] Comment on above: Result Comment: PREG MARTIR TEST is *POSITIVE* Performed By: #### L 400.0001, L400.7600 #### [facility] [place], [address] Protein Test strip Ql (U)Ord ered By: Cassie Pearson on 07-07-2024 Protein Ql (U) Negative Negative [facility] Squamous epithelial cells de tection in urine sediment by light microscopyOrdered By: Cassie Pearson on 07-07-2024 Epithelial cells.squamous LM Ql (Urine sed) 0-5 SEEN /hpf 5-10 [facility] Urinalysis, Completeon 07-07 EPI,SQUAMOUS 0-5 SEEN Normal 5-10 [facility] Comment on above: Order Comment: DESTINEE CTOR TO SPECIFY Performed By: #### L 400.0001, L400.7600 #### [facility] [address] [place], [address] RBC 0 SEEN Normal 0-5 [facility] Comment on above: Order Comment: DESTINEE CTOR TO SPECIFY Performed By: #### L 400.0001, L400.7600 #### [facility] [address] [place], [address] WBC 0-5 SEEN Normal 0-5 [facility] Comment on above: Order Comment: DESTINEE CTOR TO SPECIFY Performed By: #### L 400.0001, L400.7600 #### [facility] [address] [place], [address] AMORPHOUS 3+ PHOS Normal [facility] Comment on above: Order Comment: DESTINEE CTOR TO SPECIFY Performed By: #### L 400.0001, L400.7600 #### [facility] [address] [place], [address] BACTERIA 0 SEEN Normal None Seen [facility] Comment on above: Order Comment: DESTINEE CTOR TO SPECIFY Performed By: #### L 400.0001, L400.7600 #### [facility] [address] [place], [address] Mucus Ql (Urine sed) 0 SEEN Normal [facility] Comment on above: Order Comment: DESTINEE CTOR TO SPECIFY Performed By: #### L 400.0001, L400.7600 #### [facility] [address] [place], [address] Urine clarityOrdered By: Samantha Pearson on 07-07-2024 Clarity (U) Cloudy Clear [facility] Urine color determinationOrd ered By: Cassie Pearson on 07-07-2024 Color (U) Yellow Yellow [facility] Urine glucose detectionOrder ed By: Cassie Pearson on 07-07-2024 Glucose Ql (U) Normal mg/dl Normal [facility] Urine leukocyte esterase det ection by dipstickOrdered By: Cassie Pearson on 07-07-2024 Leukocyte esterase Test strip Ql (U) 25 /ul High Negative [facility] Urine pHOrdered By: Cassie yancey on 07-07-2024 pH (U) 7.0 [pH] 5.0 - 8.0 [facility] Urine testOrdered By: Cassie Pearson on 07-07-2024 HCG ( test) Ql (U) Negative High [facility] Comment on above: TEST is *P OSITIVE* Urine sediment bacteria coun t by microscopy (number/high power field)Ordered By: Cassie Pearson on 07-07-2024 Bacteria LM.HPF (Urine sed) [#/Area] 0 /[HPF] None Seen [facility] Urine specific gravity measu rementOrdered By: Cassie Pearson on 07-07-2024 Specific gravity (U) [Rel density] 1.015 1.002-1.030 [facility] Urine urobilinogen measureme ntOrdered By: Cassie Pearson on 07-07-2024 Urobilinogen Ql (U) 4 mg/dl High Normal [facility] White blood cell countOrdere d By: Cassie Pearson on 07-07-2024 White blood cell count 0-5 SEEN /hpf 0-5 [facility] CNOVon 06-23-2024 CNOV Office Visit (UCWSTR) ---- APARNA MOCK ([id number]) 1995 F MEI Date Time Provider Department 06/23[facility]24 10[facility] visit today, we recorded the following information about you: Trina Chester APRN.C 40A CREW CHIEF 06/23/2024 11:11 AM Signed Patient triaged at [facility]. Here today with worsening right lower quadrant pain over 1 week. Denies . Does not speak Togolese, advertising sales assistant with patient. Patient in no apparent distress at time of triage. I will refer to ER. Allergies As of Date: 06/23/2024 (Not on File) Date Reviewed: Never Reviewed Primary Visit Diagnosis:Right lower quadrant abdominal pain [R10.31] Problem List As Of Date: 06/23/2024 (None) Encounter Status:Closed by TRINA CHESTER on 06/23/24 Normal [facility] Urgent Care Visit Reporton 0 02-06-2024 Urgent Care Visit Report [facility] [address] 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 Accompanied by: Friend Is patient in pain?: No Allergies No Known Allergies Allergy (Verified 02/06/24 10:26) Medications ???Medication ???Instructions ???Recorded ???Confirmed ???Type cyclobenzaprine 10 mg tablet 10 mg PO TID PRN Muscle Spasm #20 02/04/24 02/06/24 Rx TABLETS naproxen 500 mg tablet 500 mg PO BID #20 tabs 02/04/24 02/06/24 Rx PFSH Medical History (Updated 02/06/24 @ 12:42 by Peter ARTIS, PA) Lumbar strain Social History Smoking Status: Never smoker HPI HPI Chief Complaint: ED FU BACK INJURY/ GOJO Details: APARNA MOCK, is a 28 F who presents to the office today for follow-up status post ED evaluation for low back pain/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 Upon initial evaluation at [facility] ED there was no mention of a work-related back injury, though through her advertising sales assistant () pain was with lifting heavy product is previously stated. No chest pain, shortness of breath, and dyspnea on exertion, or caudal/ radicular complaints upon questioning. Pain is aggravated to touch and with flexion/extension at the waist. No [id number] products taken to assist. No other associated symptoms and no other alleviating/aggrava ting factors. ROS Const Constitutional: No other (As [...] other concerns develop. Patient acknowledges understanding through advertising sales assistant (spouse). This note was generated with Where I've Beenation software. It may contain incorrect words, spelling, and punctuation that were not noted in checking the note before signing. 02/06/24 1244 Date Peter Ness Signature: Date (if applicable) CC: Normal [facility] Emergency Department Summary on 02-04-2024 Emergency Department Summary [facility] Medical Records Department [address] [place] [address] Emergency Department Summary 02/04/24 MR#: [id number] Acct: [id number] Name: APARNA MOCK Rep #: [id number] : 1995 28 From: Maile Kohli DO PCP: Care Physician,No Primary Status:DEP ER Location: ED HPI History of Present Illness Chief Complaint: Back Detail of Chief Complaint: Back pain Informant: patient Narrative Narrative: Patient presents to the emergency department complaint of lower back pain that she has had for 3 days. Patient denies any injury. She is Azerbaijani speaking and using iPad advertising sales assistant was able to obtain history. Patient states [...] or vomiting. She denies abdominal pain. PFSH PFSH Medical History no medical history Home Medications [...] Endocrine Endocrinology: Denies polydipsia, polyphagia or polyuria Hematologic/Lymphat ic Hematologic/Lymphat ic: Denies easy bleeding, easy bruising or lymphadenopathy Allergic/Immunologi c Allergic/Immunologi c ED: Denies mouth swelling, tongue swelling or [...] strength abnorma (more content not included)... Normal [facility] ,Urineon 02-04-2024 Beta HCG ( test) Ql (U) Negative Normal [facility] Comment on above: Order Comment: CLEAN CATCH Result Comment: Very dilute urine specimens, as indicated by a low specific gravity, may not contain surgical device sales representative levels of hCG. If is still suspected, a first morning urine specimen should be collected 48 hours later and tested. Performed By: #### L 400.7600, L400.0001 #### [facility] [address] [place], [address] Urinalysis, Completeon 02-03 RBC 50-100 SEEN Normal 0-5 [facility] Comment on above: Order Comment: CLEAN CATCH Performed By: #### L 400.7600, L400.0001 #### [facility] [address] [place], [address] BACTERIA 0 SEEN Normal None Seen [facility] Comment on above: Order Comment: CLEAN CATCH Performed By: #### L 400.7600, L400.0001 #### [facility] [address] [place], [address] EPI,SQUAMOUS 0 SEEN Normal 5-10 [facility] Comment on above: Order Comment: CLEAN CATCH Performed By: #### L 400.7600, L400.0001 #### [facility] [address] [place], [address] Mucus Ql (Urine sed) 0 SEEN Normal [facility] Comment on above: Order Comment: CLEAN CATCH Performed By: #### L 400.7600, L400.0001 #### [facility] [address] [place], [address] WBC 0 SEEN Normal 0-5 [facility] Comment on above: Order Comment: CLEAN CATCH Performed By: #### L 400.7600, L400.0001 #### [facility] [address] [place], [address] Vital Signs Date Time Vital Sign Value Performing Clinician Yadira taylor 10-31-2024 12:32-0400 Body temperature 97 [degF] No Primary Care Physician [facility] 10-31-2024 12:32-0400 Diastolic blood pressure 68 mm[Hg] No Primary Care Physician [facility] 10-31-2024 12:32-0400 Heart rate 82 /min No Primary Care Physician [facility] 10-31-2024 12:32-0400 Respiratory rate 14 /min No Primary Care Physician [facility] 10-31-2024 12:32-0400 SaO2% (BldA) [Mass fraction] 98 % No Primary Care Physician [facility] 10-31-2024 12:32-0400 Systolic blood pressure 102 mm[Hg] No Primary Care Physician [facility] 10-31-2024 09:40-0400 Body height 162.56 cm No Primary Care Physician [facility] 10-31-2024 09:40-0400 Body mass index (BMI) [Ratio] 24.5 kg/m2 No Primary Care Physician [facility] 10-31-2024 09:40-0400 Body weight 64.9 kg No Primary Care Physician [facility] 10-19-2024 22:41-0400 Body temperature 98.7 [degF] No Primary Care Physician [facility] 10-19-2024 22:41-0400 Diastolic blood pressure 66 mm[Hg] No Primary Care Physician [facility] 10-19-2024 22:41-0400 Heart rate 66 /min No Primary Care Physician [facility] 10-19-2024 22:41-0400 Respiratory rate 16 /min No Primary Care Physician [facility] 10-19-2024 22:41-0400 SaO2% (BldA) [Mass fraction] 100 % No Primary Care Physician [facility] 10-19-2024 22:41-0400 Systolic blood pressure 105 mm[Hg] No Primary Care Physician [facility] 10-19-2024 22:05-0400 Body mass index (BMI) [Ratio] 27.5 kg/m2 No Primary Care Physician [facility] 10-19-2024 22:05-0400 Body weight 72.7 kg No Primary Care Physician [facility] 10-19-2024 18:04-0400 Body height 162.56 cm No Primary Care Physician [facility] 10-19-2024 16:52-0400 Body weight 73.3 kg No Primary Care Physician [facility] 10-19-2024 15:47-0400 Body temperature 97.8 [degF] No Primary Care Physician [facility] 10-19-2024 15:47-0400 Diastolic blood pressure 55 mm[Hg] No Primary Care Physician [facility] 10-19-2024 15:47-0400 Heart rate 75 /min No Primary Care Physician [facility] 10-19-2024 15:47-0400 Respiratory rate 16 /min No Primary Care Physician [facility] 10-19-2024 15:47-0400 Systolic blood pressure 101 mm[Hg] No Primary Care Physician [facility] 07-07-2024 13:54-0500 Body mass index (BMI) [Ratio] 28.3 kg/m2 No Primary Care Physician [facility] 07-07-2024 13:54-0500 Body temperature 97.2 [degF] No Primary Care Physician [facility] 07-07-2024 13:54-0500 Body weight 74.84 kg No Primary Care Physician [facility] 07-07-2024 13:54-0500 Diastolic blood pressure 96 mm[Hg] No Primary Care Physician [facility] 07-07-2024 13:54-0500 Heart rate 86 /min No Primary Care Physician [facility] 07-07-2024 13:54-0500 Respiratory rate 14 /min No Primary Care Physician [facility] 07-07-2024 13:54-0500 SaO2% (BldA) [Mass fraction] 100 % No Primary Care Physician [facility] 07-07-2024 13:54-0500 Systolic blood pressure 114 mm[Hg] No Primary Care Physician [facility] Encounters Encounter Date Encounter Type Care Provider Facility Start: 01-15-2025 ambulatory JACQUI [facility] Facility:[facility] Start: 01-15-2025 End: 01-19-2025 Outreach Lab JACQUI [facility]SKIN[facility] Start: 12-27-2024 End: 12-27-2024 ambulatory NONE PHYSICIAN Facility:[facility] Start: 12-27-2024 End: 12-27-2024 Patient encounter procedure WESTON ELIZALDE MD [facility] Start: 12-20-2024 ambulatory NONE PHYSICIAN Facility :[facility] Start: 12-10-2024 End: 12-10-2024 ambulatory NONE PHYSICIAN Facility:[facility] Start: 12-10-2024 End: 12-10-2024 Patient encounter procedure WESTON ELIZALDE MD [facility] Start: 11-09-2024 ambulatory Tosha Arshad Facility: [facility] Start: 10-31-2024 End: 10-31-2024 Emergency department patient visit No Primary Care Physician -Emergency Department Work Phone: Start: 10-22-2024 End: 10-22-2024 ambulatory NONE PHYSICIAN [facility] Start: 10-22-2024 End: 10-22-2024 Patient encounter procedure WESTON ELIZALDE MD [facility] Start: 10-19-2024 End: 10-19-2024 Emergency department patient visit No Primary Care Physician -Emergency Department Work Phone: Start: 10-19-2024 ambulatory Estiven Vee Facility:[facility] Start: 10-19-2024 Non-patient / Non-visit Dr. Estiven lam MD -[facility] Work Phone: Start: 10-19-2024 End: 10-19-2024 ambulatory No Primary Care Physician [facility] Work Phone: Start: 10-19-2024 End: 10-19-[address] Estiven Vee MD -[facility] Work Phone: Start: 08-02-2024 End: 08-06-2024 ambulatory NONE PHYSICIAN Facility:[facility] [place] Start: 08-02-2024 End: 08-02-2024 ambulatory NONE PHYSICIAN Facility:[facility] [place] Start: 07-07-2024 End: 07-07-2024 Emergency department patient visit Dr. Yfn Robledo MD -Emergency Department Work Phone: Start: 06-23-2024 End: 06-23-2024 Patient encounter procedure Trina Chester APRN.CNP Work Phone: [facility] Comment on above: Right lower quadrant abdominal pain (Primary Dx) Start: 06-23-2024 End: 06-23-2024 ambulatory Facility:[facility] Start: 02-06-2024 End: 02-06-2024 ambulatory No Primary Care Physician Facility:[facility] Start: 02-04-2024 End: 02-04-2024 Emergency department patient visit Remus Ungur Facility:[facility] Procedures Date Procedure Procedure Detail Performing Clinician Start: 10-31-2024 Plain x-ray of elbow No Primary Care Physician Start: 10-19-2024 Urnls dip stick/tabl et reagent auto microscopy No Primary Care Physician Start: 10-19-2024 Urine culture No Primar y Care Physician Start: 07-07-2024 Urnls dip stick/tabl et reagent auto microscopy No Primary Care Physician None (qualifier value) SWETHA ELIZALDE MD Plan of Treatment Date Care Activity Detail Author Start: 10-19-[address] [facility] Start: 10-19-2024 End: 10-19-2024 [facility] Start: 10-19-2024 Nonstress test [facility] Start: 10-19-2024 Insertion of cathete r into peripheral vein [facility] Start: 10-19-2024 Obstetric monitoring [facility] Start: 10-19-2024 Vital signs measurements [facility] Start: 10-19-2024 Bacteria identified in Urine by Culture Urine Culture [facility] [facility] Start: 10-19-2024 Iv infusion therapy/prophylaxis /dx 1st to 1 hr THER/PROPH/DIAG IV INF INIT [facility] Start: 10-19-2024 Patient discharge [facility] Start: 07-07-[address] [facility] Start: 01-15-2024 Covid-19 Vaccine ( season) Covid-19 [...] [facility] Start: 2014 Urine microalbumin profile DTaP,Tdap,Td Vaccine (1 - Tdap) [facility] Start: 2013 Anxiety Screening Anxiety Screening [facility] Start: 2013 Depression Screening Depression Scre ening [facility] Start: 2013 Hepatitis C screening Hepatitis C Sc reening [facility] Start: 2013 HIV screening HIV Screening [facility] Patient Education [facility] Work Phone: Patient referral [facility] Work Phone: [facility]rine culture [facility] Immunizations Immunization Date Immunization Notes Care Provider Zachary linda 01-15-2025 tetanus toxoid, redu barrington diphtheria toxoid, and acellular pertussis vaccine, adsorbed; Translations: [Boostrix (Tdap)] JACQUI VIDAL [facility] Comment on above: Result Comment: [facility]# [id number] Payers Date Payer Category Payer Medicaid [id number] 2024 Unknown [id number] 2024 Unknown [id number] 2024 Self-pay 1995 Unknown [id number] 2.16. [id number] 1995 Unknown [id number] 2.16. [id number] 1995 Unknown [id number] 2.16. [id number] 1995 Unknown [id number] 2.16. [id number] 1995 Unknown [id number] 2.16. 840.1.140108.3.579.2.627 1995 Unknown [id number] 2.16.8 40.1.243493.3.579.2.627 1995 Unknown [id number] 2.16.8 40.1.347558.3.579.2.627 Unknown [id number] 2.16.8 40.1.224461.3.579.2.462 Unknown [id number] 2.16.8 40.1.098176.3.579.2.462 Unknown [id number] 2.16.8 40.1.867044.3.579.2.462 Unknown [id number] 2.16.8 40.1.151967.3.579.2.462 Unknown [id number] 2.16.8 40.1.804671.3.579.2.462 Unknown [id number] 2.16.8 40.1.248006.3.579.2.462 Unknown [id number] 2.16.8 40.1.981084.3.579.2.462 Unknown [id number] 2.16.8 40.1.812687.3.579.2.462 Social History Date Type Detail Facility Tobacco smoking stat us COIS Tobacco smoking consumption unknown [facility] Start: 1995 Sex assigned at Not on file [facility] Gender identity Not on file [facility] in Start: 07-07-2024 End: 08-02-2024 Tobacco smoking status NHIS Never smoked tobacco (finding) [facility] Start: 1995 Sex Assigned At Female [facility] Sexual Orientation [place] Maxime boo [facility] Sex Female (finding) Dimaaries Silverman kimberly Clinical Notes 06-23-2024 to 01-16-2025 Note Date & Type Note Facility 01-16-2025 Note . MICRO - Microbiology PROCEDURE: Urine Culture [*1] SOURCE: Urine, Clean Catch BODY SITE: COLLECTED DATE/TIME: 01/15/2025 14:03 EDT RECEIVED DATE/TIME: 01/15/2025 19:25 EDT START DATE/TIME: 01/15/2025 19:26 EDT FREE TEXT SOURCE: FINAL REPORTS Final Report [] Verified Date/Time/Personnel: 01/16/2025 14:34 EDT 10,000 - 50,000 cfu/ml Mixed growth consistent with normal urogenital rain. PRELIMINARY REPORTS Preliminary Report [] Verified Date/Time/Personnel: 01/15/2025 19:59 EDT Specimen received in lab. Performing Locations *1: This test was performed at: [facility], [address] [place] [address], [address]- , [facility] 10-31-2024 Radiology Diagnostic study note [facility] Imaging Services [address] [place] [id number] Elbow min 3 Views MR#: [id number] Acct: [id number] Name: APARNA MOCK Rep #: [id number] : 1995 F 29 From: Jono Robbins MD PCP: Dr. Tosha Arshad MD Status: PRE ER Study:Elbow min 3 Views Date of Exam: Exam# [id number] Ordering Dr: Ronak Rock DO PROCEDURE: ELBOW MIN 3 VIEWS 10/31/2024 REASON FOR EXAM: INJURY/PAIN TECHNIQUE: ELBOW MIN 3 VIEWS COMPARISON: None FINDINGS: Bones: No fracture is seen. Joints: No evidence of dislocation Soft tissues: Soft tissues are unremarkable. Other: RAD/Elbow min 3 Views IMPRESSION: No acute abnormality is seen. Reading Location: [place] [address] CC: Dr. Tosha Arshad MD; Dr. 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 EXAM: US Duplex Right Lower Extremity Veins CLINICAL INDICATION: TECHNIQUE: Real-time duplex ultrasound scan of the right lower extremity veins integrating B-mode two-dimensional vascular structure, Doppler spectral analysis, color flow Doppler imaging and compression. COMPARISON: No relevant prior studies available. FINDINGS: DEEP VEINS: Probable nonocclusive thrombus in the distal right superficial femoral vein. SUPERFICIAL VEINS: Unremarkable. No thrombus in the visualized great saphenousvein. SOFT TISSUES: No acute findings. No popliteal cyst. US/Venous Duplex Imag/Limited/Uni IMPRESSION: Probable nonocclusive thrombus in the distal right superficial femoral vein. Reading Location: [facility] ER CC: ED PHYSICIAN PROVIDER; No Primary Care Physician ~ Pipeline Inspector: Signed [facility] 10-19-2024 History and physi tiffanie note [facility] 10-19-2024 Evaluation note Diagnosis Onset Date Resolution Dizziness, nonspecific acute Ju 2024 3:19pm Posterior right knee pain acute October 19, 2024 3 :19pm acute October 19, 2024 3:19pm [facility] Work Phone: 1(459) 348-526902-08-2025 NoteHNO ID: [id number] Author: TRINA CHESTER APRN.ROSMERY Service: ? Author Type: Nurse Practitioner Type: Progress Notes Filed: 06/23/2024 11:11 Note Text: Patient triaged at [facility]. Here today with worsening right lower quadrant pain over 1 week. Denies . Does not speak Togolese, advertising sales assistant with patient. Patient in no apparent distress at time of triage. I will refer to ER. [facility]02-08-2025 History of Present illness Narrative* Trina Chester APRN.CNP - 06/23/2024 11:10 AM EST Patient triaged at [facility]. Here today with worsening right lower quadrant pain over 1 week. Denies . Does not speak Togolese, advertising sales assistant with patient. Patient in no apparent distress at time of triage. I will refer to ER. [facility] Future Appointments Appointment Date:11/05/2024 09:15:00 AM Scheduled Provider:TOSHA ARSHAD MD Location:[facility] Appointment Type: OV OB Routine Follow Up Future Scheduled Tests Laboratory* Urine Culture 08/02/24 * Hemoglobin Electrophoresis - Panel 09/12/24 Radiology* US OB > 14 weeks 10/22/24 [facility] Evaluation + Plan note Future Appointments Appointment Date:12/24/2024 09:15:00 AM Scheduled Provider:WESTON ELIZALDE MD Location:[facility] Appointment Type:[facility] OB Routine Follow Up Diagnostic Tests Pending * Rapid Plasma Reagin Test 12/10/24 * Hemoglobin Electrophoresis - Panel 12/10/24 Future Scheduled Tests Laboratory* Urine Culture 08/02/24 * Hemoglobin Electrophoresis - Panel 09/12/24 Radiology* US OB > 14 weeks 12/24/24 * US OB > 14 weeks 10/22/24 [facility] Evaluation + Plan note Future Appointments Appointment Date:01/01/2025 09:45:00 AM Scheduled Provider:WESTON ELIZALDE MD Location:[facility] Appointment Type:[facility] OB Routine Follow Up Future Scheduled Tests Laboratory* Urine Culture 08/02/24 Radiology* US OB > 14 weeks 12/21/24 * US OB > 14 weeks 10/22/24 [facility] Evaluation + Plan note Future Appointments Appointment Date:01/28/2025 09:45:00 AM Scheduled Provider:TOSHA ARSHAD MD Location:[facility] Appointment Type:[facility] OB Routine Follow Up Future Scheduled Tests Laboratory* Urine Culture 08/02/24 Radiology* US OB > 14 weeks 12/21/24 * US OB > 14 weeks 10/22/24 [facility] Evaluation note* Diagnosis Right lower quadrant abdominal pain- Primary Abdominal pain, right lower quadrant documented in this encounter [facility] Author Estiven Vee [facility] Note Date/Time October 19, 2024 5:55p m [facility] Medical Records Department [address] [place] [address] OB Triage Physician Note 10/19/24 1742 MR#: [id number] Acct: [id number] Name: APARNA MOCK Rep #:[id number] : 1995 29 From: Estiven Vee MD PCP: Care Physician,No Primary Status :REG CLI Y Location: [id number] HPI - General General Date of Admission: 10/19/24 Date of Service: 10/19/24 HPI Narrative APARNA MOCK, is a 29 F G2, P1 who presents at 21 weeks gestation with lower abdominal crampiness and dizziness. She reports that the dizziness occurs primarily when the pain in her right knee flares. She reports that she has had this pain for the last 5 months since she became . She denies any bleeding and reports good movement. 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 Patient speaks very little Togolese but rather [place] as she is from [facility]. She follows with a doctor in [place] for her obstetrical care. Maternal Data Information Gestational age: 21+ weeks [facility] Medical History (Updated 10/19/24 @ 17:[address] Estiven Vee MD) Lumbar strain Home Medications ?Medication ?Instructions ?Recorded ?Last Taken ?Type cyclobenzaprine 10 mg tablet 10 mg PO TID PRN Muscle S pasm #20 02/04/24 Unknown Rx TABLETS naproxen 500 mg tablet 500 mg PO BID #20 tabs 02/03 Unknown Rx Allergy/AdvReac Type Severity Reaction Status Date / Time No Known Allergies Allergy Verified 10/19/24 16:53 Social History Smoking Status: Never smoker Physical Exam Const alert, oriented x3 and no apparent distress General Appearance: cooperative, comfortable and well kempt Orientation / Consciousness: awake, oriented to person and oriented to place Exam Limitations: no limitations HEENT normocephalic Resp normal respiratory effort and normal air movement Cardio regular rate GI GI Narrative: Abdominal size consistent with gestational age. Positive heart tones noted. Extremity full ROM Extremity Narrative: Normal left leg. Right leg with pain behind right knee. Patient indicates thisbeen present for 5 months and started with . No edema noted in right leg and negative Homans' sign. However, palpation behind and just below the right knee shows moderate pain. General Extremity: normal exam except as noted Neuro oriented x3 and moves all extremities Psych mental status grossly normal Appearance: grossly normal and appropriate NST FHR Rate Baby A NST Reactive:: Appropriate for gestational age Assessment & Plan (1) Posterior right knee pain: (2) Dizziness, nonspecific: (3) : PLAN: Plan Urine analysis and CBC unremarkable. Positive FHTs present and no contractions noted. Confirmed patient is no longer using naproxen. Patient indicates that her dizziness occurs primarily whenever her right knee pain flares. We discussed that with the warm weather drinking more water may help to alleviate some of the dizziness issues. She indicates that she has not had a doppler to rule out DVT so we we will return the patient to the emergency room to have thisevaluated. Will give 1 week off work as work seems to aggravate the knee pain and dizziness; she can then discuss further with her OB in [place] whether or not she needs to be off work additional time. 10/19/24 1800 <Electronically signed by Estiven Swain> Date _ Estiven Vee MD Cosigner Signature (if applicable): Date CC: Dr. Mariposa Holloway DO; Dr. Estiven Vee MD; Dr. Maria Guadalupe Johnson MD; No Primary Care Physician ~ Signed [facility] Work Phone: Hospital course Narrative No data available for this section [facility] Hospital Discharge instructions Additional Instructions Thank you for trusting us with your care today! Your labs and images were consistent with acute DVT. This will require treated with a blood thinner called an anticoagulant. Because you are the HEAD START COORDINATOR ( physician) recommended Lovenox. Please take this medication as prescribed. Please take Tylenol (2 pills, 650 mg) every 6 hours as needed for pain and fever control. Please return to the emergency department if your symptoms change or worsen. Specifically you develop severe chest pain, shortness of breath or if you lose consciousness. Please return to the ED for further evaluation if you develop any bleeding issues including nosebleeding, dark stools, vaginal bleeding. Please return for evaluation if you suffer any head trauma. Please follow with HEAD START COORDINATOR and vascular surgery for further outpatient evaluation and management. M si paske ou f nou konfyans pan swen ou shanell a! Rezilta laboratwa ak imaj ou yo te konsistan av k yon thrombose venn pwofon egi. Sa ap mande tretman ak yon medikaman pan fluidifye rader yo rele yon antikoagulan. Pout t ou ansent, jinekol g/obstetrisyen (dokt gwos s la) te rek mande Lovenox. Tanpri pran medikaman sa a cj yo preskri li a. Tanpri pran Tylenol (2 grenn, 650 mg) chak 6 dtan cj sa neses pan kontwole doul ak lafy v. Tanpri retounen nan s vis ijans mei si sent m ou yo chanje oswa bony pi mal. Espesyalman, si ou devlope gwo doul nan pwatrin, souf kout oswa si ou p di konesans. Tanpri retounen nan s vis ijans mei pan plis evalyasyon si ou devlope nenp t pwobl m senyen tankou senyen nan nen, poupou nwa, senyen nan vajen. Tanpri retounen pan evalyasyon si ou soufri nenp t ch k nan t t. Tanpri swiv ak jinekol g/obstetrisyen ak chiriji vaskil pan plis evalyasyon ak jesyon ekst n.[facility] Work Phone: Hospital Discharge instructions No data available for this section [facility] Progress note No data available for this section [facility] Reason for referral (narrative)No reason for referral information availableWWilson Health Work Phone: Summary Purpose Family History No Family History Records Found No data available for this section No data available for this section No data available for this section No Family History Records FoundNo Family History Records Found No data available for this section Advance Directives Advance Directive Response Recorded Date/ Time Living Will No July 07 3:22pm Do you have a Healthcare Power of Color Weigher? No July 07, 2024 3:22pm Advance Directive Response Recorded Date/ Time Living Will No July 07 3:22pm Do you have a Healthcare Power of Color Weigher? No July 07, 2024 3:22pm Do you have a Healthcare Power of Color Weigher? No October 19, 2024 9:58pm Advance Directive Response Recorded Date/ Time Living Will No February 22nd, 2 025 3:22pm Do you have a Healthcare Power of Color Weigher? No July 07, 2024 3:22pm Do you have a Healthcare Power of Color Weigher? No October 19, 2024 9:58pm Do you have a Healthcare Power of Color Weigher? No October 31, 2024 9:40am Chief Complaint and Reason for Visit Chief Complaint Admit Date BACK July 07, 2024 1:52pm ABDOMINAL CRAMPING October 19, 2024 3:19p m ABDOMINAL CRAMPING October 19, 2024 5:42p m Reason for Visit Admit Date Dizziness, nonspecific October 19, 2024 3: 19pm Posterior right knee pain October 19, 2024 3:19pm October 19, 2024 3:19p m Chief Complaint Admit Date BACK July 07, 2024 1:52pm ABDOMINAL CRAMPING October 19, 2024 3:19p m ABDOMINAL CRAMPING October 19, 2024 5:42p m DOPPLER October 19, 2024 6:03p m Chief Complaint Admit Date BACK July 07, 2024 1:52pm ABDOMINAL CRAMPING October 19, 2024 3:19p m ABDOMINAL CRAMPING October 19, 2024 5:42p m DOPPLER October 19, 2024 6:03p m ELBOW October 31, 2024 9:40 am Additional Source Comments Source Comments (unrecognize d [...] section and content) DATE CREATED AUTHOR 06/25/2024 [facility] DATE CREATED AUTHOR 'S ORGANIZ ATION 01/06/2025 [facility] DATE CREATED AUTHOR AUTHOR'S ORGANIZ ATION 01/18/2025 [facility] Care Teams (unrecognized sec tion and content) Care Team Personnel Name: WESTON ELIZALDE MD Position: P4 HEAD START COORDINATOR Provider Member Role: OBGYN Address: [address] [facility] Services [place], [place] [address] Telecom: Name: PHYSICIAN, NONE Position: AH Physician Member Role: Primary Care Physician Care Team Related Persons Name: WARNER ROWAN Team Status: Active Member Role Status Dates No Primary Care Physician Primary Care Provider Active Team Status: Inactive Member Role Status Dates No Primary Care Physician Primary Care Provider Active Start: July 07, 2024 End: July 07, 2024 Yfn Robledo MD Attending Provider Active Star t: July 07, 2024 End: July 07, 2024 Yfn Robledo MD Emergency Provider Active Star t: July 07, 2024 End: July 07, 2024 Team Status: Inactive Member Role Status Dates No Primary Care Physician Primary Care Provider Active Start: October 19, 2024 End: October 19, 2024 Dr. Estiven Vee MD Attending Provider Active S tart: October 19, 2024 End: October 19, 2024 Dr. Estiven Vee MD Referring Provider Active S tart: October 19, 2024 End: October 19, 2024 Team Status: Active Member Role Status Dates No Primary Care Physician Primary Care Provider Active Start: October 19, 2024 Dr. Estiven Vee MD Attending Provider Active S tart: October 19, 2024 Dr. Estiven Vee MD Referring Provider Active S tart: October 19, 2024 Dr. Estiven Vee MD Other Provider Active Start : October 19, 2024 Team Status: Active Member Role Status Dates Dr. Tosha Arshad MD Primary Care Provider Active Team Status: Inactive Member Role Status Dates Dr. Raciel Espinosa DO Emergency Provider Active Start: October 19, 2024 End: October 19, 2024 Dr. Tosha Arshad MD Primary Care Provider Active Start: October 19, 2024 End: October 19, 2024 Team Status: Inactive Member Role Status Dates Dr. Raciel Espinosa DO Attending Provider Active Start: October 19, 2024 End: October 19, 2024 Dr. Raciel Espinosa DO Emergency Provider Active Start: October 19, 2024 End: October 19, 2024 Dr. Tosha Arshad MD Primary Care Provider Active Start: October 19, 2024 End: October 19, 2024 Team Status: Inactive Member Role Status Dates Dr. Tosha Arshad MD Primary Care Provider Active Start: October 31, 2024 End: October 31, 2024 Dr. Ronak Rock DO Emergency Provider Active Start: October 31, 2024 End: October 31, 2024 Goals (unrecognized section and content) Goals may be documented in a n alternate sectionGoals may be documented in an alternate section No data available for this sectionGoals may be documented in an alternate section No data available for this section No data available for this section No data available for this section FOR RECORDS PERTAINING TO PATIENTS WHO ARE [...] BE BASED ON THE PRIMARY CLINICAL RECORDS. [facility] [employer] [facility]. provides no warranty or guarantee of the accuracy or completeness of information in this document.
[2025-01-20 08:43] VITALS: BMI 28.1
--- NOTE | 2025-01-20 09:06 | NURSING ---
[id number] Dr Johnson notified of patient arrival reports of belly ache starting this AM. Only reports feeling one contraction. Negative assessment and stable vitals. Reports good movement. Discharge orders recieved. Encourage pt to consume bland diet and follow up with her provider if symptoms persist.
--- NOTE | 2025-01-26 01:18 | OB.TRI.PN ---
Progress Notes Date of Service: 01/20/25 Progress Note: Patient presents for triage evaluation secondary to false labor FHT: 135 Moderate variability reactive no decelerations category I tracing [place]: irregular Contractions Assessment and plan: 34 weeks falst lbaor Reactive NST, reassuring maternal and status patient discharged to home to follow-up as scheduled. See problem list details for additional plan information. Charges/Coding Procedures Urinary/Genital 52xxx-59xxx: 33952-68 non-stress test Interp Assessment & Plan (1) :
== END 2025-01-20 08:35 | disposition home or self-care (01) ==
LOC: WPOUT 06:32 → WP 06:57
PROVIDERS: PCP Obstetrics & Gynecology; Visit Provider Obstetrics & Gynecology
DX: O47.03 False labor before 37 completed weeks of gestation, third trimester (principal); Z3A.34 34 weeks gestation of pregnancy
CPT/HCPCS: 59025; 59050; 99221; G0378